=== PATIENT | female | born 1935 | race Caucasian/White ===

== ENCOUNTER 2017-08-27 00:37 | Inpatient (IN) | payer MEDICARE, MEDICAID ==
[2017-08-27] MEDS ORDERED: Albuterol-Ipratrop 3 mg / 0.5 (3 ml) UD INH STA ×2 (00:51)
[2017-08-27 01:17] LABS: ABG ALLEN TEST YES; ABG MECHANICAL RATE 14; ARTERIAL BLOOD GAS HCO3 28.3 mmol/L (21-28); ARTERIAL BLOOD GAS PH 7.59 (7.35-7.45); ARTERIAL BLOOD GAS PO2 193 mm/Hg (80-100)
--- NOTE | 2017-08-27 01:20 | ED PDOC ---
HPI: SOB/CHF/COPD Time Seen by Provider: 08/27/17 00:40 Chief Complaint (Nursing): Respiratory Distress Chief Complaint (Provider): Respiratory Distress History Per: Family (History was provided by the Daughter) Onset/Duration Of Symptoms: Days (x 3 days) Current Symptoms Are (Timing): Still Present Additional Complaint(s): 82 y/o female with past medical history of asthma who has a pacemaker is presented to the ED by EMS for respiratory distress and shortness of breath associated with cough x 2 days. According to the daughter, patient visited visual basic developer yesterday, 08/26/17 and after that she developed cough and fever. Patient was found with extreme SOB by EMS and was intubated on scene. On arrival to ED, patient was given positive pressure ventilation and chest rise was observed. Past Medical History Reviewed: Historical Data, Nursing Documentation, Vital Signs Vital Signs: Last Vital Signs Temp 97.7 F 08/27/17 03:40 Pulse 70 08/27/17 06:00 Resp 17 08/27/17 06:00 BP 141/65 08/27/17 06:00 Pulse Ox 100 08/27/17 07:04 - Medical History PMH: Asthma, Diabetes, HTN - Surgical History Surgical History: Cholecystectomy, Pacemaker - Family History Family History: States: Unknown Family Hx - Home Medications Home Medications: Ambulatory Orders Medication Instructions Recorded Acetaminophen with Codeine 1 tab PO Q4 PRN #10 tab 04/03/15 [Tylenol with Codeine No. 3 300 mg-30 mg] Donepezil HCl [Donepezil HCl] 5 mg PO HS 04/03/15 Fenofibrate Nanocrystallized 48 mg PO HS 04/03/15 [Fenofibrate] Furosemide [Furosemide] 40 mg PO DAILY 04/03/15 Ibuprofen [Motrin] 600 mg PO Q6 PRN #10 tab 04/03/15 Insulin Detemir [Levemir] 20 unit SC ACB 04/03/15 Insulin Detemir [Levemir] 36 units SC HS 04/03/15 Losartan Potassium [Cozaar] 100 mg PO DAILY 04/03/15 Montelukast [Singulair] 10 mg PO HS 04/03/15 Nateglinide [Starlix] 120 mg PO TID 04/03/15 Omeprazole [Prilosec] 20 mg PO BID 04/03/15 Paroxetine HCl [Paroxetine] 20 mg PO DAILY 04/03/15 Potassium Chloride [K-Dur 10] 10 meq PO DAILY 04/03/15 Pregabalin [Lyrica] 75 mg PO HS 04/03/15 Repaglinide [Prandin] 2 mg PO TID 04/03/15 Esomeprazole Magnesium [Nexium] 40 mg PO DAILY 08/27/17 Fenofibrate Nanocrystallized 48 mg PO DAILY 08/27/17 [Tricor] Ferrous Sulfate [Ferosul] 325 mg PO DAILY 08/27/17 Furosemide [Lasix] 40 mg PO DAILY 08/27/17 Glimepiride [amaRYL] 4 mg PO BID 08/27/17 Metoprolol Succinate [Toprol XL] 100 mg PO DAILY 08/27/17 [place]-3S/Dha/Epa/Fish Oil [Fish 2 cap PO DAILY 08/27/17 Oil [place]-3 Softgel] Pregabalin [Lyrica] 75 mg PO DAILY 08/27/17 Zolpidem [Ambien] 5 mg PO HS 08/27/17 cloNIDine [Catapres] 0.2 mg PO DAILY 08/27/17 hydrALAZINE [Apresoline] 50 mg PO DAILY 08/27/17 - Allergies Allergies/Adverse Reactions: Allergies Allergy/AdvReac Type Severity Reaction Status Date / Time No Known Allergies Allergy Verified 08/27/17 00:49 Review of Systems Review Of Systems: ROS cannot be obtained secondary to pt's inabilty to answer questions. (Due to critical condition, patient was unable to answer questions. Daughter provided some information) Constitutional: Positive for: Fever Respiratory: Positive for: Cough, Shortness of Breath, Other (respiratory distress) Physical Exam - Reviewed Nursing Documentation Reviewed: Yes Vital Signs Reviewed: Yes - Physical Exam Appears: Positive for: In Acute Distress Head Exam: Positive for: ATRAUMATIC, NORMAL INSPECTION, NORMOCEPHALIC Skin: Positive for: Normal Color, Warm, Dry Eye Exam: Positive for: EOMI, PERRL ENT: Positive for: Other (intubated) Cardiovascular/Chest: Positive for: Regular Rate, Rhythm. Negative for: Murmur Respiratory: Positive for: Wheezing (bilateral wheezing with positive pressure ventilation), Respiratory Distress (Paitent intubated on scene by EMS) Gastrointestinal/Abdominal: Positive for: Bowel Sounds, Soft, Distended Extremity: Negative for: Tenderness, Pedal Edema, Swelling Neurologic/Psych: Positive for: Other (intubated) - Laboratory Results Result Diagrams: 08/27/17 05:30 08/27/17 05:30 - ECG O2 Sat by Pulse Oximetry: 100 (RA) Pulse Ox Interpretation: Normal - Critical Care Total Time (In Min): 60 Medical Decision Making Medical Decision Making: Time: 00:42 Initial Impression: 82 y/o female with respiratory failure with past medical history asthma, cancer and hypertension Plan: --ABG shock panel --EKG --CMP --Lactic acid, Plasma --Troponin I --Urine Dipstick --CBC w/ differential --PTT --Prothrombin time --Chest portable --Albuterol 3ml INH --Albuterol 3ml INH --Methylprednisolone 125mg IVP --Blood culture --Heplock Insertion --Accucheck --[place] --Ventilator settings --Peak flow pre/post Tx --Peak flow pre/post Tx --Influenza A B --Urinalysis --Reevaluation Time: 02:00 Upon provider reevaluation patient is critical and is transferred to ICU for further treatment with Dr. Fierro and Dr. Jules. Clinical Impression: Respiratory Failure, CHF, Asthma exacerbation Scribe Attestation: Documented by Cachorro Bennett acting as a scribe for James García MD. Scribe Attestation: All medical record entries made by the Scribe were at my direction and personally dictated by me. I have reviewed the chart and agree that the record accurately reflects my personal performance of the history, physical exam, medical decision making, and the department course for this patient. I have also personally directed, reviewed, and agree with the discharge instructions and disposition. Disposition - Clinical Impression Clinical Impression: Respiratory failure, CHF (congestive heart failure), Moderate COPD (chronic obstructive pulmonary disease) - Patient ED Disposition Is Patient to be Admitted: Yes Discussed With : Mario Jules (Dr Fierro) - Disposition Disposition Time: 02:00 Condition: CRITICAL - Pt Status Changed To: Hospital Disposition Of: Inpatient - Admit Certification Admit to Inpatient:: After my assessment, the patient will require hospitalization for at least two midnights. This is because of the severity of symptoms shown, intensity of services needed, and/or the medical risk in this patient being treated as an outpatient.
[2017-08-27] MEDS ORDERED: Albuterol-Ipratrop 3 mg / 0.5 (3 ml) UD ONE (01:50)
[2017-08-27 01:57] LABS: BASO % 0.1 % (0.0-2.0); EOS # 0.1 K/uL (0.0-0.7); HEMATOCRIT 29.1 % (34.0-47.0); LYMPH # 0.6 K/uL (1.0-4.3); LYMPH % 10.1 % (20.0-40.0); MEAN CELL VOLUME 100.3 fl (81.0-99.0); MEAN CORPUSCULAR HEMOGLOBIN 34.1 pg (27.0-31.0); MEAN PLATELET VOLUME 9.3 fl (7.2-11.7); MONO # 0.1 K/uL (0.0-0.8); NEUT % 87.8 % (50.0-75.0); NRBC % 0.1 % (0.0-0.0); RED CELL DISTRIBUTION WIDTH 13.2 % (11.5-14.5); WHITE BLOOD COUNT 5.7 K/uL (4.8-10.8)
[2017-08-27 02:02] LABS: ALB/GLOB RATIO 1.1 (1.0-2.1); BILIRUBIN,TOTAL 0.3 mg/dl (0.2-1.3); CALCIUM 8.9 mg/dL (8.4-10.2); POTASSIUM 5.3 MMOL/L (3.6-5.0); TOTAL PROTEIN 7.4 G/DL (6.3-8.2)
[2017-08-27 02:13] LABS: PARTIAL THROMBOPLASTIN TIME 32.5 Seconds (25.6-37.1)
[2017-08-27] MEDS ORDERED: Insulin Regular 100 units/ml IV ONE (02:13)
[2017-08-27 02:14] LABS: TROPONIN I 0.033 ng/mL (0.00-0.120)
[2017-08-27] MEDS ORDERED: Insulin Lispro (humaLOG) 100 Units/ml Inj SC SCH (02:30)
--- NOTE | 2017-08-27 02:30 | CP.PCM.CON ---
History of Present Illness - History of Present Illness History of Present Illness: CC: SOB History via staff/chart as patient is intubated HPI: This is an 82 y/o female with MHx significant for asthma, ?systolic CHF, arrhythmia, DM2, and HTN who was brought in by EMS for SOB/respiratory failure. She was intubated in the field and was placed on the vent in the ER. Per her family, she had seen her emergency services dispatcher yesterday, and the visit was uneventful. However, she had developed a cough about 2 days ago, and it got much worse overnight; she may have had a fever as well, but not documented. There is no report of n/v/d. ROS: unable to obtain, patient intubated MHx: asthma, ?systolic CHF, arrhythmia, DM2, and HTN SHx: PPM, cholecystectomy Family Hx: unable to obtain, intubated Social Hx: Lives with family; no report of tobacco or EtOH Surrogate dec mkr: Ermelinda Koehler Review of Systems - Review of Systems Systems not reviewed;Unavailable: Intubated Past Patient History - CARDIAC Hx Hypertension: Yes Hx Pacemaker: Yes - PULMONARY Hx Asthma: Yes - ENDOCRINE/METABOLIC Hx Diabetes Mellitus Type 2: Yes - HEMATOLOGICAL/ONCOLOGICAL Hx Cancer: Yes (HX LEFT BREAST) - SURGICAL HISTORY Hx Cholecystectomy: Yes - ANESTHESIA Hx Anesthesia: Yes Meds Allergies/Adverse Reactions: Allergies Allergy/AdvReac Type Severity Reaction Status Date / Time No Known Allergies Allergy Verified 08/27/17 00:49 - Medications Medications: Current Medications Albuterol/Ipratropium (Duoneb 3 Mg/0.5 Mg (3 Ml) Ud) 3 ml INH RQ4 PRN PRN Reason: Shortness of Breath Furosemide (Lasix) 40 mg IVP BID [facility] Heparin Sodium (Porcine) (Heparin) 5,000 units SC Q8 [facility] PRN Reason: Protocol Methylprednisolone 60 mg/ (Sodium Chloride) 50 mls @ 100 mls/hr IV Q8H [facility] Insulin Human Lispro (Humalog) 0 units SC Q6H [facility] PRN Reason: Protocol Pantoprazole Sodium (Protonix Inj) 40 mg IVP DAILY [facility] Physical Exam - Constitutional Appears: No Acute Distress Additional comments: intubated - Head Exam Head Exam: ATRAUMATIC, NORMOCEPHALIC - ENT Exam ENT Exam: Mucous Membranes Moist - Respiratory Exam Respiratory Exam: Rales, Rhonchi Additional comments: on vent, coarse breath sounds on vent - Cardiovascular Exam Cardiovascular Exam: REGULAR RHYTHM, +S1, +S2 - GI/Abdominal Exam GI & Abdominal Exam: Normal Bowel Sounds, Soft - Extremities Exam Extremities exam: Positive for: pedal edema - Skin Skin Exam: Dry, Warm Results - Vital Signs Recent Vital Signs: Last Vital Signs Temp Pulse 92 H 08/27/17 01:03 Resp 25 H 08/27/17 01:03 BP 157/85 H 08/27/17 01:03 Pulse Ox 100 08/27/17 01:50 - Labs Result Diagrams: 08/27/17 00:45 08/27/17 00:45 Labs: Laboratory Results - last 24 hr 08/27/17 08/27/17 08/27/17 00:45 00:45 00:45 WBC 5.7 RBC 2.90 L Hgb 9.9 L Hct 29.1 L MCV 100.3 H D MCH 34.1 H MCHC 34.0 RDW 13.2 Plt Count 120 L D MPV 9.3 Neut % (Auto) 87.8 H Lymph % (Auto) 10.1 L [place] % (Auto) 1.0 Eos % (Auto) 1.0 Baso % (Auto) 0.1 Neut # 5.0 Lymph # 0.6 L [place] # 0.1 Eos # 0.1 Baso # 0.0 PT 11.3 INR 1.0 APTT 32.5 pCO2 pO2 HCO3 ABG pH ABG Total CO2 ABG O2 Saturation ABG Base Excess Edilson Test ABG Potassium A-a O2 Difference Glucose Lactate Mechanical Rate FiO2 Tidal Volume Sodium 135 Potassium 5.3 H Chloride 102 Carbon Dioxide 25 Anion Gap 13 BUN 48 H Creatinine 1.9 H Est GFR ( Amer) 30 Est GFR (Non-Af Amer) 25 Random Glucose 338 H Lactic Acid Calcium 8.9 Total Bilirubin 0.3 AST 33 ALT 23 Alkaline Phosphatase 49 Troponin I 0.0330 NT-Pro-B Natriuret Pep 6430 H Total Protein 7.4 Albumin 3.8 Globulin 3.6 Albumin/Globulin Ratio 1.1 Arterial Blood Potassium Influenza Typ A,B (EIA) 08/27/17 08/27/17 08/27/17 00:45 00:45 01:03 WBC RBC Hgb Hct MCV MCH MCHC RDW Plt Count MPV Neut % (Auto) Lymph % (Auto) [place] % (Auto) Eos % (Auto) Baso % (Auto) Neut # Lymph # [place] # Eos # Baso # PT INR APTT pCO2 26 L pO2 193 H HCO3 28.3 H ABG pH 7.59 H ABG Total CO2 25.7 ABG O2 Saturation 99.9 H ABG Base Excess 4.3 H Edilson Test Yes ABG Potassium 5.7 H A-a O2 Difference 488.0 Glucose 350 H Lactate 1.2 Mechanical Rate 14 FiO2 100.0 Tidal Volume 500 Sodium 132.0 Potassium Chloride 108.0 H Carbon Dioxide Anion Gap BUN Creatinine Est GFR ( Amer) Est GFR (Non-Af Amer) Random Glucose Lactic Acid 1.4 Calcium Total Bilirubin AST ALT Alkaline Phosphatase Troponin I NT-Pro-B Natriuret Pep Total Protein Albumin Globulin Albumin/Globulin Ratio Arterial Blood Potassium 5.7 H Influenza Typ A,B (EIA) Negative for flu a/b - EKG Data EKG comments: Pending - Imaging and Cardiology Chest x-ray Status: Image reviewed by me (poor quality, likely vol overload, ET tube in place, PM on L) Assessment & Plan (1) Respiratory failure Assessment and Plan: 82 y/o female with respiratory failure likely 2/2 asthma and AoC systolic CHF. 1) Asthma/respiratory failure; no obvious PNA -Continue duonebs -Continue IV Solumedrol 60 mg q8h -Continue vent support 2) CHF/respiratory failure -Lasix 40 mg IV q12h -Continue vent support 3) ARF/elevated K -- likely due to vol o/l and impaired forward flow -UA -Diurese; should help with K as well -Hold MIL/ARBs for now; dose medications renally -Repeat BMP in AM 4) DM2 -NPO for now, q6h ac and SSI for now; resume LA insulin in AM if blood sugar high 5) HTN -- consider resuming BP medications in AM if BP is stable 6) DVT PPx -- SQ heparin 7) GI PPx -- IV Protonix Critical Care time spent: 40 min Status: Acute (2) Systolic CHF, acute on chronic Status: Acute (3) Asthma attack Status: Acute (4) DM2 (diabetes mellitus, type 2) Status: Acute (5) HTN (hypertension) Status: Acute (6) DVT prophylaxis Status: Acute
[2017-08-27] MEDS ORDERED: Insulin Regular 100 units/ml ONE (02:52)
--- NOTE | 2017-08-27 03:54 | CT ---
EXAM: CT Head Without Intravenous Contrast CLINICAL HISTORY: 82 years old, female; Signs and symptoms; Altered mental status/memory loss; Additional info: AMS TECHNIQUE: Axial computed tomography images of the head/brain without intravenous contrast. All CT scans at this facility use one or more dose reduction techniques, viz.: automated exposure control; ma/kV adjustment per patient size (including targeted exams where dose is matched to indication; i.e. head); or iterative reconstruction technique. Coronal and sagittal reformatted images were created and reviewed. COMPARISON: No relevant prior studies available. FINDINGS: Brain: Mild atrophy. No intracranial hemorrhage. No mass. Few scattered foci of decreased attenuation within periventricular/subcortical white matter. No definite edema. Ventricles: No hydrocephalus. Bones/joints: No acute fracture. Soft tissues: Unremarkable. Vasculature: Atherosclerotic disease of intracranial arteries. Sinuses: Scattered mild to moderate thickening of ethmoid sinuses. Scattered minimal to mild mucosal thickening of remaining sinuses. Mastoid air cells: Minimal fluid within LEFT mastoid. Orbits: Unremarkable as visualized. Tubes, lines and devices: Endotracheal tube. IMPRESSION: 1. Nonspecific white matter changes. Acute infarction may be CT occult within first 24 hours. If a focal deficit persists, consider followup CT or MRI for further evaluation. 2. Incidental/non-acute findings are described above.
[2017-08-27] MEDS: methylPREDNISolone 60 MG in Sodium Chloride 0.9% 50 ML IV SCH ×2 (04:20→11:02)
[2017-08-27 04:56] LABS: RBC URINE 1 /hpf (0-3); URINE BACTERIA RARE (<OCC); URINE BILIRUBIN NEGATIVE (NEGATIVE); URINE BLOOD NEGATIVE (NEGATIVE); URINE COLOR YELLOW (YELLOW); URINE GLUCOSE (UA) 50 mg/dL (Normal); URINE KETONE NEGATIVE (NEGATIVE); URINE LEUKOCYTE ESTERASE NEG Leu/uL (Negative); URINE PROTEIN 30 mg/dL (NEGATIVE); URINE UROBILINOGEN 0.2-1.0 mg/dL (0.2-1.0); WBC URINE 2 /hpf (0-5)
[2017-08-27 06:28] LABS: MEAN CELL VOLUME 99.7 fl (81.0-99.0); MEAN CORPUSCULAR HGB CONC 34.1 g/dL (33.0-37.0); MEAN PLATELET VOLUME 8.9 fl (7.2-11.7); RED CELL DISTRIBUTION WIDTH 13.1 % (11.5-14.5); WHITE BLOOD COUNT 5.5 K/uL (4.8-10.8)
[2017-08-27 06:48] LABS: CALCIUM 8.7 mg/dL (8.4-10.2); POTASSIUM 5.5 MMOL/L (3.6-5.0)
[2017-08-27 06:57] VITALS: BMI 35.6
[2017-08-27 09:38] LABS: THYROID STIMULATING HORMONE 1.19 mIU/ML (0.46-4.68)
--- NOTE | 2017-08-27 10:58 | CP.PCM.CON ---
History of Present Illness - History of Present Illness History of Present Illness: RENAL CONSULT NOTE 82 y/o female with asthma, CHF, arrhythmia, DM2, and HTN who was brought in by EMS for SOB/respiratory failure, currently intubated and being treated for chf. I have been consulted for elaine. past medical hx as above social, family hx unable to obtain PE: lying in bed intubated heent normal opens eyes to name [id number] present bilateral air entry equal abd soft edema _ opens eyes to name A&P; ELAINE/hyperkalemia/chf/resp failure/htn non oliguric monitor urine outpt continue lasix hyperkalemia: medical management please call if any qs [phone] Past Patient History - Past Medical History & Family History Past Medical History?: Yes - Past Social History Smoking Status: Never Smoked - CARDIAC Hx Hypertension: Yes Hx Pacemaker: Yes - PULMONARY Hx Asthma: Yes - NEUROLOGICAL Hx Neurological Disorder: Yes - HEENT Hx HEENT Problems: No - RENAL Hx Chronic Kidney Disease: No - ENDOCRINE/METABOLIC Hx Endocrine Disorders: Yes - HEMATOLOGICAL/ONCOLOGICAL Hx Blood Disorders: Yes - INTEGUMENTARY Hx Dermatological Problems: No - MUSCULOSKELETAL/RHEUMATOLOGICAL Hx Musculoskeletal Disorders: No - PSYCHIATRIC Hx Psychophysiologic Disorder: Yes - SURGICAL HISTORY Hx Cholecystectomy: Yes - ANESTHESIA Hx Anesthesia: Yes Meds Allergies/Adverse Reactions: Allergies Allergy/AdvReac Type Severity Reaction Status Date / Time No Known Allergies Allergy Verified 08/27/17 00:49 - Medications Medications: Current Medications Albuterol/Ipratropium (Duoneb 3 Mg/0.5 Mg (3 Ml) Ud) 3 ml INH RQ4 PRN PRN Reason: Shortness of Breath Furosemide (Lasix) 40 mg IVP BID [facility] Last Admin: 08/27/17 08:38 Dose: 40 mg Heparin Sodium (Porcine) (Heparin) 5,000 units SC Q8 [facility] PRN Reason: Protocol Last Admin: 08/27/17 08:38 Dose: 5,000 units Methylprednisolone 60 mg/ (Sodium Chloride) 50 mls @ 100 mls/hr IV Q8H [facility] Last Admin: 08/27/17 04:20 Dose: 100 mls/hr Insulin Human Lispro (Humalog) 0 units SC Q6 [facility] PRN Reason: Protocol Pantoprazole Sodium (Protonix Inj) 40 mg IVP DAILY [facility] Last Admin: 08/27/17 08:38 Dose: 40 mg Results - Vital Signs Recent Vital Signs: Last Vital Signs Temp 97.4 F L 08/27/17 08:00 Pulse 70 08/27/17 10:00 Resp 16 08/27/17 10:00 BP 175/68 H 08/27/17 10:00 Pulse Ox 100 08/27/17 10:00 - Labs Result Diagrams: 08/27/17 05:30 08/27/17 05:30 Labs: Laboratory Results - last 24 hr 08/27/17 08/27/17 08/27/17 00:45 00:45 00:45 WBC 5.7 RBC 2.90 L Hgb 9.9 L Hct 29.1 L MCV 100.3 H D MCH 34.1 H MCHC 34.0 RDW 13.2 Plt Count 120 L D MPV 9.3 Neut % (Auto) 87.8 H Lymph % (Auto) 10.1 L [place] % (Auto) 1.0 Eos % (Auto) 1.0 Baso % (Auto) 0.1 Neut # 5.0 Lymph # 0.6 L [place] # 0.1 Eos # 0.1 Baso # 0.0 PT 11.3 INR 1.0 APTT 32.5 pCO2 pO2 HCO3 ABG pH ABG Total CO2 ABG O2 Saturation ABG Base Excess Edilson Test ABG Potassium A-a O2 Difference Glucose Lactate Mechanical Rate FiO2 Tidal Volume Sodium 135 Potassium 5.3 H Chloride 102 Carbon Dioxide 25 Anion Gap 13 BUN 48 H Creatinine 1.9 H Est GFR ( Amer) 30 Est GFR (Non-Af Amer) 25 POC Glucose (mg/dL) Random Glucose 338 H Lactic Acid Calcium 8.9 Total Bilirubin 0.3 AST 33 ALT 23 Alkaline Phosphatase 49 Troponin I 0.0330 NT-Pro-B Natriuret Pep 6430 H Total Protein 7.4 Albumin 3.8 Globulin 3.6 Albumin/Globulin Ratio 1.1 Triglycerides Cholesterol LDL Cholesterol Direct HDL Cholesterol Vitamin B12 TSH 3rd Generation Arterial Blood Potassium Urine Color Urine Clarity Urine pH Ur Specific [place] Urine Protein Urine Glucose (UA) Urine Ketones Urine Blood Urine Nitrate Urine Bilirubin Urine Urobilinogen Ur Leukocyte Esterase Urine RBC (Auto) Urine Microscopic WBC Ur Squamous Epith Cells Urine Bacteria Hyaline Casts Influenza Typ A,B (EIA) 08/27/17 08/27/17 08/27/17 00:45 00:45 01:03 WBC RBC Hgb Hct MCV MCH MCHC RDW Plt Count MPV Neut % (Auto) Lymph % (Auto) [place] % (Auto) Eos % (Auto) Baso % (Auto) Neut # Lymph # [place] # Eos # Baso # PT INR APTT pCO2 26 L pO2 193 H HCO3 28.3 H ABG pH 7.59 H ABG Total CO2 25.7 ABG O2 Saturation 99.9 H ABG Base Excess 4.3 H Edilson Test Yes ABG Potassium 5.7 H A-a O2 Difference 488.0 Glucose 350 H Lactate 1.2 Mechanical Rate 14 FiO2 100.0 Tidal Volume 500 Sodium 132.0 Potassium Chloride 108.0 H Carbon Dioxide Anion Gap BUN Creatinine Est GFR ( Amer) Est GFR (Non-Af Amer) POC Glucose (mg/dL) Random Glucose Lactic Acid 1.4 Calcium Total Bilirubin AST ALT Alkaline Phosphatase Troponin I NT-Pro-B Natriuret Pep Total Protein Albumin Globulin Albumin/Globulin Ratio Triglycerides Cholesterol LDL Cholesterol Direct HDL Cholesterol Vitamin B12 TSH 3rd Generation Arterial Blood Potassium 5.7 H Urine Color Urine Clarity Urine pH Ur Specific [place] Urine Protein Urine Glucose (UA) Urine Ketones Urine Blood Urine Nitrate Urine Bilirubin Urine Urobilinogen Ur Leukocyte Esterase Urine RBC (Auto) Urine Microscopic WBC Ur Squamous Epith Cells Urine Bacteria Hyaline Casts Influenza Typ A,B (EIA) Negative for flu a/b 08/27/17 08/27/17 08/27/17 04:10 04:47 05:30 WBC 5.5 RBC 2.71 L Hgb 9.2 L Hct 27.0 L MCV 99.7 H MCH 34.0 H MCHC 34.1 RDW 13.1 Plt Count 103 L MPV 8.9 Neut % (Auto) Lymph % (Auto) [place] % (Auto) Eos % (Auto) Baso % (Auto) Neut # Lymph # [place] # Eos # Baso # PT INR APTT pCO2 pO2 HCO3 ABG pH ABG Total CO2 ABG O2 Saturation ABG Base Excess Edilson Test ABG Potassium A-a O2 Difference Glucose Lactate Mechanical Rate FiO2 Tidal Volume Sodium Potassium Chloride Carbon Dioxide Anion Gap BUN Creatinine Est GFR ( Amer) Est GFR (Non-Af Amer) POC Glucose (mg/dL) 291 H Random Glucose Lactic Acid Calcium Total Bilirubin AST ALT Alkaline Phosphatase Troponin I NT-Pro-B Natriuret Pep Total Protein Albumin Globulin Albumin/Globulin Ratio Triglycerides Cholesterol LDL Cholesterol Direct HDL Cholesterol Vitamin B12 TSH 3rd Generation Arterial Blood Potassium Urine Color Yellow Urine Clarity Slighty-cloudy Urine pH 5.0 Ur Specific [place] 1.017 Urine Protein 30 Urine Glucose (UA) 50 Urine Ketones Negative Urine Blood Negative Urine Nitrate Negative Urine Bilirubin Negative Urine Urobilinogen 0.2-1.0 Ur Leukocyte Esterase Neg Urine RBC (Auto) 1 Urine Microscopic WBC 2 Ur Squamous Epith Cells < 1 Urine Bacteria Rare Hyaline Casts 0-2 Influenza Typ A,B (EIA) 08/27/17 08/27/17 08/27/17 05:30 08:20 10:45 WBC RBC Hgb Hct MCV MCH MCHC RDW Plt Count MPV Neut % (Auto) Lymph % (Auto) [place] % (Auto) Eos % (Auto) Baso % (Auto) Neut # Lymph # [place] # Eos # Baso # PT INR APTT pCO2 pO2 HCO3 ABG pH ABG Total CO2 ABG O2 Saturation ABG Base Excess Edilson Test ABG Potassium A-a O2 Difference Glucose Lactate Mechanical Rate FiO2 Tidal Volume Sodium 140 Potassium 5.5 H Chloride 103 Carbon Dioxide 27 Anion Gap 16 BUN 51 H Creatinine 2.1 H Est GFR ( Amer) 27 Est GFR (Non-Af Amer) 22 POC Glucose (mg/dL) 348 H Random Glucose 330 H Lactic Acid Calcium 8.7 Total Bilirubin AST ALT Alkaline Phosphatase Troponin I NT-Pro-B Natriuret Pep Total Protein Albumin Globulin Albumin/Globulin Ratio Triglycerides 176 H Cholesterol 137 LDL Cholesterol Direct 47 HDL Cholesterol 26 L Vitamin B12 468 TSH 3rd Generation 1.19 Arterial Blood Potassium Urine Color Urine Clarity Urine pH Ur Specific [place] Urine Protein Urine Glucose (UA) Urine Ketones Urine Blood Urine Nitrate Urine Bilirubin Urine Urobilinogen Ur Leukocyte Esterase Urine RBC (Auto) Urine Microscopic WBC Ur Squamous Epith Cells Urine Bacteria Hyaline Casts Influenza Typ A,B (EIA)
[2017-08-27] MEDS: Insulin Lispro (humaLOG) 100 Units/ml Inj SC SCH ×3 (11:01→22:14)
--- NOTE | 2017-08-27 13:04 | RAD ---
HISTORY: resp failure COMPARISON: Comparison chest 11/04/2009 FINDINGS: In situ ETT, tip of which lies at approximately the thoracic inlet - clavicular head region. This could be advanced slightly. The LUNGS: Diffuse bilateral infiltrates nonspecific. Rule out pulmonary edema/ CHF versus pneumonia. PLEURA: No significant pleural effusion identified, no pneumothorax apparent. CARDIOVASCULAR: Cardiomegaly. Interval placement bipolar pacemaker. OSSEOUS STRUCTURES: No significant abnormalities. VISUALIZED UPPER ABDOMEN: Normal. OTHER FINDINGS: None. IMPRESSION: ETT lies at the level of thoracic inlet and could be advanced. Diffuse bilateral infiltrates nonspecific. Rule out pulmonary edema/ CHF versus pneumonia. . Note that the findings were discussed with the ICU physician Dr. Barrett at approximately 1 p.m. with written down and read back verification.
[2017-08-27] MEDS: Azithromycin 500 MG in Sodium Chloride 0.9% 250 ML IVPB SCH (14:07)
[2017-08-27] MEDS: cefTRIAXone IV 1 gm in Dextros 50 ML IVPB SCH (14:08)
[2017-08-27] MEDS: Albuterol-Ipratrop 3 mg / 0.5 (3 ml) UD INH SCH ×2 (15:46→19:22)
--- NOTE | 2017-08-27 18:26 | CARD ---
APPROVED REPORT EKG Measurement Heart [id number] P7 [id number] <Conclusion> AV dual-paced rhythm with frequent premature ventricular complexes Abnormal ECG
--- NOTE | 2017-08-27 18:40 | CP.PCM.CON ---
History of Present Illness - History of Present Illness History of Present Illness: Consultation for evaluation of CHF HPI: 82 year old with hx of hepatic ca with metastatic breast ca on chemotherapy at [facility] , followed by signal manager ( Lulu ) was at his office yesterday for cardiac evaluation , on XRT and chemo x 5 years admitted with c/o acute onset SOB and cough went into respiratory failure requiiring intubation in the field. Walks with a cane and a walker at home with very limted activity/ . Already on chemo for liver ca at [facility] by . She saw for pulmonary evaluation COPD/sleep apnea. She was sent for sleep study which showed she has sleep apnea and was waiting for CPAP machine. Past Patient History - Past Medical History & Family History Past Medical History?: Yes - Past Social History Smoking Status: Never Smoked - CARDIAC Hx Cardiac Disorders: Yes Hx Cardia Arrhythmia: Yes Hx Congestive Heart Failure: Yes Hx Hypertension: Yes Hx Pacemaker: Yes - PULMONARY Hx Asthma: Yes - NEUROLOGICAL Hx Neurological Disorder: Yes - HEENT Hx HEENT Problems: No - RENAL Hx Chronic Kidney Disease: No - ENDOCRINE/METABOLIC Hx Endocrine Disorders: Yes - HEMATOLOGICAL/ONCOLOGICAL Hx Blood Disorders: Yes - INTEGUMENTARY Hx Dermatological Problems: No - MUSCULOSKELETAL/RHEUMATOLOGICAL Hx Musculoskeletal Disorders: No - PSYCHIATRIC Hx Psychophysiologic Disorder: Yes - SURGICAL HISTORY Hx Cholecystectomy: Yes - ANESTHESIA Hx Anesthesia: Yes Meds Allergies/Adverse Reactions: Allergies Allergy/AdvReac Type Severity Reaction Status Date / Time No Known Allergies Allergy Verified 08/27/17 00:49 - Medications Medications: Current Medications Albuterol/Ipratropium (Duoneb 3 Mg/0.5 Mg (3 Ml) Ud) 3 ml INH RQ4 PRN PRN Reason: Shortness of Breath Albuterol/Ipratropium (Duoneb 3 Mg/0.5 Mg (3 Ml) Ud) 3 ml INH RQID [facility] Last Admin: 08/27/17 15:46 Dose: 3 ml Furosemide (Lasix) 40 mg IVP BID [facility] Last Admin: 08/27/17 16:34 Dose: 40 mg Heparin Sodium (Porcine) (Heparin) 5,000 units SC Q8 [facility] PRN Reason: Protocol Last Admin: 08/27/17 16:32 Dose: 5,000 units Ceftriaxone Sodium (Rocephin Iv 1 Gm Duplex) 50 mls @ 50 mls/hr IVPB DAILY [facility] PRN Reason: Protocol Last Admin: 08/27/17 14:08 Dose: 50 mls/hr Azithromycin 500 mg/ Sodium (Chloride) 250 mls @ 250 mls/hr IVPB DAILY [facility] PRN Reason: Protocol Last Admin: 08/27/17 14:07 Dose: 250 mls/hr Insulin Human Lispro (Humalog) 0 units SC Q6 [facility] PRN Reason: Protocol Last Admin: 08/27/17 16:33 Dose: 8 units Methylprednisolone (Solu-Medrol) 60 mg IVP Q8H [facility] Last Admin: 08/27/17 17:38 Dose: 60 mg Pantoprazole Sodium (Protonix Inj) 40 mg IVP DAILY [facility] Last Admin: 08/27/17 08:38 Dose: 40 mg Physical Exam - Constitutional Appears: Toxic - Head Exam Head Exam: ATRAUMATIC - Eye Exam Eye Exam: Normal appearance, PERRL - ENT Exam ENT Exam: Mucous Membranes Moist - Neck Exam Neck exam: Positive for: Normal Inspection - Respiratory Exam Respiratory Exam: Decreased Breath Sounds, Prolonged Expiratory Phase, Rales - Cardiovascular Exam Cardiovascular Exam: REGULAR RHYTHM, +S1, +S2, Systolic Murmur - GI/Abdominal Exam GI & Abdominal Exam: Soft - Extremities Exam Extremities exam: Positive for: normal inspection, pedal edema - Neurological Exam Neurological exam: Altered Results - Vital Signs Recent Vital Signs: Last Vital Signs Temp 98.1 F 08/27/17 16:00 Pulse 70 08/27/17 18:00 Resp 13 08/27/17 18:00 BP 156/78 H 08/27/17 18:00 Pulse Ox 100 08/27/17 18:00 - Labs Result Diagrams: 08/27/17 05:30 08/27/17 05:30 Labs: Laboratory Results - last 24 hr 08/27/17 08/27/17 08/27/17 00:45 00:45 00:45 WBC 5.7 RBC 2.90 L Hgb 9.9 L Hct 29.1 L MCV 100.3 H D MCH 34.1 H MCHC 34.0 RDW 13.2 Plt Count 120 L D MPV 9.3 Neut % (Auto) 87.8 H Lymph % (Auto) 10.1 L Blanco % (Auto) 1.0 Eos % (Auto) 1.0 Baso % (Auto) 0.1 Neut # 5.0 Lymph # 0.6 L Blanco # 0.1 Eos # 0.1 Baso # 0.0 PT 11.3 INR 1.0 APTT 32.5 pCO2 pO2 HCO3 ABG pH ABG Total CO2 ABG O2 Saturation ABG Base Excess Edilson Test ABG Potassium A-a O2 Difference Glucose Lactate Mechanical Rate FiO2 Tidal Volume Sodium 135 Potassium 5.3 H Chloride 102 Carbon Dioxide 25 Anion Gap 13 BUN 48 H Creatinine 1.9 H Est GFR ( Amer) 30 Est GFR (Non-Af Amer) 25 POC Glucose (mg/dL) Random Glucose 338 H Lactic Acid Calcium 8.9 Total Bilirubin 0.3 AST 33 ALT 23 Alkaline Phosphatase 49 Troponin I 0.0330 NT-Pro-B Natriuret Pep 6430 H Total Protein 7.4 Albumin 3.8 Globulin 3.6 Albumin/Globulin Ratio 1.1 Triglycerides Cholesterol LDL Cholesterol Direct HDL Cholesterol Vitamin B12 TSH 3rd Generation Arterial Blood Potassium Urine Color Urine Clarity Urine pH Ur Specific Red[place] Urine Protein Urine Glucose (UA) Urine Ketones Urine Blood Urine Nitrate Urine Bilirubin Urine Urobilinogen Ur Leukocyte Esterase Urine RBC (Auto) Urine Microscopic WBC Ur Squamous Epith Cells Urine Bacteria Hyaline Casts Influenza Typ A,B (EIA) 08/27/17 08/27/17 08/27/17 00:45 00:45 01:03 WBC RBC Hgb Hct MCV MCH MCHC RDW Plt Count MPV Neut % (Auto) Lymph % (Auto) Blanco % (Auto) Eos % (Auto) Baso % (Auto) Neut # Lymph # Blanco # Eos # Baso # PT INR APTT pCO2 26 L pO2 193 H HCO3 28.3 H ABG pH 7.59 H ABG Total CO2 25.7 ABG O2 Saturation 99.9 H ABG Base Excess 4.3 H Edilson Test Yes ABG Potassium 5.7 H A-a O2 Difference 488.0 Glucose 350 H Lactate 1.2 Mechanical Rate 14 FiO2 100.0 Tidal Volume 500 Sodium 132.0 Potassium Chloride 108.0 H Carbon Dioxide Anion Gap BUN Creatinine Est GFR ( Amer) Est GFR (Non-Af Amer) POC Glucose (mg/dL) Random Glucose Lactic Acid 1.4 Calcium Total Bilirubin AST ALT Alkaline Phosphatase Troponin I NT-Pro-B Natriuret Pep Total Protein Albumin Globulin Albumin/Globulin Ratio Triglycerides Cholesterol LDL Cholesterol Direct HDL Cholesterol Vitamin B12 TSH 3rd Generation Arterial Blood Potassium 5.7 H Urine Color Urine Clarity Urine pH Ur Specific [place] Urine Protein Urine Glucose (UA) Urine Ketones Urine Blood Urine Nitrate Urine Bilirubin Urine Urobilinogen Ur Leukocyte Esterase Urine RBC (Auto) Urine Microscopic WBC Ur Squamous Epith Cells Urine Bacteria Hyaline Casts Influenza Typ A,B (EIA) Negative for flu a/b 08/27/17 08/27/17 08/27/17 04:10 04:47 05:30 WBC 5.5 RBC 2.71 L Hgb 9.2 L Hct 27.0 L MCV 99.7 H MCH 34.0 H MCHC 34.1 RDW 13.1 Plt Count 103 L MPV 8.9 Neut % (Auto) Lymph % (Auto) Blanco % (Auto) Eos % (Auto) Baso % (Auto) Neut # Lymph # Blanco # Eos # Baso # PT INR APTT pCO2 pO2 HCO3 ABG pH ABG Total CO2 ABG O2 Saturation ABG Base Excess Edilson Test ABG Potassium A-a O2 Difference Glucose Lactate Mechanical Rate FiO2 Tidal Volume Sodium Potassium Chloride Carbon Dioxide Anion Gap BUN Creatinine Est GFR ( Amer) Est GFR (Non-Af Amer) POC Glucose (mg/dL) 291 H Random Glucose Lactic Acid Calcium Total Bilirubin AST ALT Alkaline Phosphatase Troponin I NT-Pro-B Natriuret Pep Total Protein Albumin Globulin Albumin/Globulin Ratio Triglycerides Cholesterol LDL Cholesterol Direct HDL Cholesterol Vitamin B12 TSH 3rd Generation Arterial Blood Potassium Urine Color Yellow Urine Clarity Slighty-cloudy Urine pH 5.0 Ur Specific [place] 1.017 Urine Protein 30 Urine Glucose (UA) 50 Urine Ketones Negative Urine Blood Negative Urine Nitrate Negative Urine Bilirubin Negative Urine Urobilinogen 0.2-1.0 Ur Leukocyte Esterase Neg Urine RBC (Auto) 1 Urine Microscopic WBC 2 Ur Squamous Epith Cells < 1 Urine Bacteria Rare Hyaline Casts 0-2 Influenza Typ A,B (EIA) 08/27/17 08/27/17 08/27/17 05:30 08:20 10:45 WBC RBC Hgb Hct MCV MCH MCHC RDW Plt Count MPV Neut % (Auto) Lymph % (Auto) Blanco % (Auto) Eos % (Auto) Baso % (Auto) Neut # Lymph # Blanco # Eos # Baso # PT INR APTT pCO2 pO2 HCO3 ABG pH ABG Total CO2 ABG O2 Saturation ABG Base Excess Edilson Test ABG Potassium A-a O2 Difference Glucose Lactate Mechanical Rate FiO2 Tidal Volume Sodium 140 Potassium 5.5 H Chloride 103 Carbon Dioxide 27 Anion Gap 16 BUN 51 H Creatinine 2.1 H Est GFR ( Amer) 27 Est GFR (Non-Af Amer) 22 POC Glucose (mg/dL) 348 H Random Glucose 330 H Lactic Acid Calcium 8.7 Total Bilirubin AST ALT Alkaline Phosphatase Troponin I NT-Pro-B Natriuret Pep Total Protein Albumin Globulin Albumin/Globulin Ratio Triglycerides 176 H Cholesterol 137 LDL Cholesterol Direct 47 HDL Cholesterol 26 L Vitamin B12 468 TSH 3rd Generation 1.19 Arterial Blood Potassium Urine Color Urine Clarity Urine pH Ur Specific [place] Urine Protein Urine Glucose (UA) Urine Ketones Urine Blood Urine Nitrate Urine Bilirubin Urine Urobilinogen Ur Leukocyte Esterase Urine RBC (Auto) Urine Microscopic WBC Ur Squamous Epith Cells Urine Bacteria Hyaline Casts Influenza Typ A,B (EIA) 08/27/17 16:32 WBC RBC Hgb Hct MCV MCH MCHC RDW Plt Count MPV Neut % (Auto) Lymph % (Auto) Blanco % (Auto) Eos % (Auto) Baso % (Auto) Neut # Lymph # Blanco # Eos # Baso # PT INR APTT pCO2 pO2 HCO3 ABG pH ABG Total CO2 ABG O2 Saturation ABG Base Excess Edilson Test ABG Potassium A-a O2 Difference Glucose Lactate Mechanical Rate FiO2 Tidal Volume Sodium Potassium Chloride Carbon Dioxide Anion Gap BUN Creatinine Est GFR ( Amer) Est GFR (Non-Af Amer) POC Glucose (mg/dL) 395 H Random Glucose Lactic Acid Calcium Total Bilirubin AST ALT Alkaline Phosphatase Troponin I NT-Pro-B Natriuret Pep Total Protein Albumin Globulin Albumin/Globulin Ratio Triglycerides Cholesterol LDL Cholesterol Direct HDL Cholesterol Vitamin B12 TSH 3rd Generation Arterial Blood Potassium Urine Color Urine Clarity Urine pH Ur Specific [place] Urine Protein Urine Glucose (UA) Urine Ketones Urine Blood Urine Nitrate Urine Bilirubin Urine Urobilinogen Ur Leukocyte Esterase Urine RBC (Auto) Urine Microscopic WBC Ur Squamous Epith Cells Urine Bacteria Hyaline Casts Influenza Typ A,B (EIA) Assessment & Plan (1) Asthma attack Status: Acute (2) CHF (congestive heart failure) Status: Acute (3) HTN (hypertension) Status: Acute (4) Moderate COPD (chronic obstructive pulmonary disease) Status: Acute (5) Respiratory failure Status: Acute (6) Systolic CHF, acute on chronic Status: Acute
--- NOTE | 2017-08-28 03:16 | PN ---
DATE: LOCATION: The patient in ICU, bed #425. TIME SPENT: 35 minutes. SUBJECTIVE: The patient is seen and evaluated at the bedside. Events since ER discussed with overnight hospitalist. Past medical, surgical, and social history reviewed and noted. An 82-year-old female, reportedly a nonsmoker with history significant for asthma, diabetes, hypertension, systolic heart failure, arrhythmia. Admitted through emergency room. Intubated in the field by EMS for sudden progressive worsening shortness of breath. The patient was seen by Cardiology prior to this admission and reportedly uneventful. Also noted to have low-grade fever reported by the family for the last couple of days. Surgical history includes cholecystectomy and pacemaker insertion. The patient remains intubated, mechanically ventilated on AC/PRBC rate of 14, tidal volume 500, FiO2 60%, saturating 100%. Observed respiratory rate of 14, exhale tidal volume of 460, peak airway pressure 27, and tidal CO2 of 36. PHYSICAL EXAMINATION: HEAD, EYES, EARS, NOSE, AND THROAT: Pupils reactive. Conjunctivae pale. Sclerae white. HEART: Rhythm regular. S1, S2 normal intensity. No S3, S4 gallop. ABDOMEN: Bowel sounds present. Soft. EXTREMITIES: Positive for 1 to 2+ plus pitting pedal edema. Dorsalis pedis palpable, reduced in intensity. SKIN: Without rash. Warm to touch. NEUROLOGIC: Sedated on ventilator. CURRENT MEDICATIONS: Albuterol/Atrovent inhalation 3 mL q.4. p.r.n., Lasix 40 mg IV b.i.d., heparin 5000 units subcu q.8., Accu-Chek with regular insulin coverage, Solu-Medrol 60 mg IV q.8., Protonix 40 mg IV daily. LABORATORY DATA: WBC 5.5, hemoglobin 9.2, hematocrit 27, platelet count 103. PT 11, INR 1, PTT 32.5. ABG; pH 7.59, pCO2 26, pO2 193, bicarbonate 28.3. SMA-7; sodium 140, potassium 5.5, chloride 103, CO2 27, blood urea nitrogen 51, creatinine 2.1, random glucose 348, triglycerides 176, cholesterol 137, LDL of 47, HDL 26, vitamin B12 468. TSH 1.19. Urinalysis negative. Serology influenza A and B negative. Microbiology report pending. Head CT, nonspecific white matter changes, minimal air fluid level at the sinuses. Chest x-ray, endotracheal tube in place. Elevated right hemidiaphragm. Left hemidiaphragm not visualized due to overlapping cardiac shadow. No pneumothorax, official report pending. IMPRESSION: 1. Neuro: Intubated on mechanical ventilation, sedated. CT head negative for acute pathology. 2. Pulmonary: Hypercapnic hypoxic respiratory failure. Continue ventilatory support, reduce FiO2 as tolerated to maintain pO2 over 70%. Continue DuoNeb 3 mL via nebulizer q. 4 hours. Solu-Medrol 60 mg IV q. 8. 3. Cardiac: Suspected history of systolic heart failure, suspected exacerbation on Lasix 40 mg IV b.i.d. We will obtain a Cardiology evaluation. Followup troponin. 4. Endocrine: History of for diabetes mellitus type 2, on Accu-Chek with regular insulin coverage. We will add basal insulin once the patient starts on feeding. 5. Gastrointestinal: No acute issues. Continue gastrointestinal prophylaxis. 6. History of hypertension: Resume medications once the blood pressure is improved. Keep the head of bed 30 degree up. Oral care. Deep venous thrombosis and gastrointestinal prophylaxis. Not a candidate for extubation now. Sterling Barrett MD
[2017-08-28] MEDS: Insulin Lispro (humaLOG) 100 Units/ml Inj SC SCH ×4 (04:52→22:00)
[2017-08-28 05:43] LABS: ABG ALLEN TEST YES; ABG MECHANICAL RATE 12; ARTERIAL BLOOD GAS HCO3 29.2 mmol/L (21-28); ARTERIAL BLOOD GAS MODE A/C; ARTERIAL BLOOD GAS O2 CAPACITY 14.7 mL/dL (16-24); ARTERIAL BLOOD GAS O2 CONTENT 14.4 ML/dL (15-23); ARTERIAL BLOOD GAS PH 7.51 (7.35-7.45); ARTERIAL BLOOD GAS PO2 167 mm/Hg (80-100); ATERIAL BLOOD GAS PEEP 5; CARBOXYHEMOGLOBIN 0 % (0.5-1.5); HHB 2.3 % (0.0-5.0); METHEMOGLOBIN 0.7 % (0.0-3.0)
[2017-08-28 06:49] LABS: HEMATOCRIT 30.1 % (34.0-47.0); MEAN CELL VOLUME 100.3 fl (81.0-99.0); MEAN CORPUSCULAR HEMOGLOBIN 33.9 pg (27.0-31.0); MEAN CORPUSCULAR HGB CONC 33.8 g/dL (33.0-37.0); RED CELL DISTRIBUTION WIDTH 13.6 % (11.5-14.5); WHITE BLOOD COUNT 8.4 K/uL (4.8-10.8)
[2017-08-28 07:09] LABS: ALB/GLOB RATIO 1.1 (1.0-2.1); BILIRUBIN,TOTAL 0.4 mg/dl (0.2-1.3); CALCIUM 9.2 mg/dL (8.4-10.2); POTASSIUM 4.2 MMOL/L (3.6-5.0); TOTAL PROTEIN 7.8 G/DL (6.3-8.2)
[2017-08-28] MEDS ORDERED: Insulin Lispro (humaLOG) 100 Units/ml Inj SC ONE (08:22)
[2017-08-28] MEDS: cefTRIAXone IV 1 gm in Dextros 50 ML IVPB SCH (08:31)
[2017-08-28] MEDS: Albuterol-Ipratrop 3 mg / 0.5 (3 ml) UD INH SCH ×4 (08:48→19:42)
[2017-08-28] MEDS ORDERED: methylPREDNISolone 20 MG in Sodium Chloride 0.9% 50 ML IVPB SCH (09:00)
[2017-08-28] MEDS: Azithromycin 500 MG in Sodium Chloride 0.9% 250 ML IVPB SCH (09:11)
[2017-08-28] MEDS: MethylPREDNISolone 40 mg Vial IVP SCH ×2 (09:21→16:09)
[2017-08-28] MEDS ORDERED: MethylPREDNISolone 40 mg Vial ONE (09:21)
--- NOTE | 2017-08-28 10:07 | PN ---
DATE: 08/28/2017 SUBJECTIVE: The patient is seen and examined. Interim events noted. Consults noted and appreciated. The patient remains in Intensive Care Unit, on ventilator, awake, responsive, but not able to provide informative history or review of systems. PHYSICAL EXAMINATION: GENERAL: The patient is orally intubated on mechanical ventilation via endotracheal tube, tolerating current ventilating without any distress; awake, responsive; complains of being hungry. VITAL SIGNS: Stable. HEART: S1 and S2, normal and regular. LUNGS: Improved bilateral air exchange. ABDOMEN: Soft, nontender. EXTREMITIES: No edema. No calf swelling. No tenderness. No acute ischemia. CENTRAL NERVOUS SYSTEM: Essentially unchanged. DIAGNOSTIC DATA: Available diagnostic data reviewed. Telemetry monitoring does not show significant arrhythmia. ASSESSMENT AND PLAN: Overall, the patient is slowly improving. Plan as ordered. Mario Jules MD
--- NOTE | 2017-08-28 10:53 | RAD ---
HISTORY: Intubated; with OGT COMPARISON: No prior. FINDINGS: ETT tip lies approximately overlies the level of the thoracic inlet -not clavicular head region. This could be advanced. . In situ NGT and/or OGT, tip of which has not been included on this film though distal aspect does lie well below EG junction. LUNGS: Interval improvement diffuse bilateral infiltrates PLEURA: No significant pleural effusion identified, no pneumothorax apparent. CARDIOVASCULAR: Heart size stable. No change bipolar pacemaker OSSEOUS STRUCTURES: No significant abnormalities. VISUALIZED UPPER ABDOMEN: Normal. OTHER FINDINGS: None. IMPRESSION: ETT tip overlies at the level of the thoracic inlet and could be advanced. NGT/NGT as above. Interval improvement diffuse bilateral infiltrates Findings discussed with Dr. Barrett at approximately 10:45 a.m. with written down and read back verification.
--- NOTE | 2017-08-28 11:59 | PCM.PROC ---
Procedures Attestation:: I certify that I have explained the specified Operation(s) or Procedure(s), risks, benefits and reasonable alternatives to the Patient and/or other person responsible. The opportunity was given to ask questions and all questions answered - Extubation RSBI Score: 9 Clinical Parameters: Resolution/Stabilization of disease process, Hemodynamically Stable, Intact Cough/Gag Reflex, Spontaneous Respirations, Acceptable Vent Settings (FIO2<50%, PEEP<8, PaO2>75, pH>7.25) Weaning Criteria Met: Yes General Weaning Approaches: Pressure Support Ventilation (PSV) Weaning, Spontaneous breathing trials and use of T-Piece Patient Condition: Patient has been successfully extubated and assessed Oxygen Therapy: O2 via Nasal Cannula Patient Tolerated Procedure: Well, No Complications
--- NOTE | 2017-08-28 16:35 | PN ---
CRITICAL CARE PROGRESS NOTE DATE: 08/28/2017 LOCATION: Patient in ICU bed #425. TIME SPENT: 35 minutes. The patient is seen and examined at the bedside. Events since admission reviewed. Past medical, surgical, and social history reviewed and noted. SUBJECTIVE: An 82-year-old female with new information from the patient having CA liver and CA left breast, status post chemo and radiation treatment. Also noted to have asthma, diabetes, hypertension and chronic systolic heart failure, arrhythmia, admitted through Emergency Room after she developed an acute onset of respiratory failure requiring intubation, suspected exacerbation of asthma, superimposed on chronic systolic heart failure. PAST SURGICAL HISTORY: Includes cholecystectomy, pacemaker insertion. PHYSICAL EXAMINATION: GENERAL: Patient currently extubated after the spontaneous breathing trial, remains in no distress, breathing on 4 L nasal cannula, saturating over 94%. VITAL SIGNS: Temperature 99.4, heart rate of 82, blood pressure 148/68, respiratory rate 18, saturation 100% on oxygen 2 L nasal cannula, intake 292, output 5500, negative balance 5208, weight 220 pounds. HEAD, EARS, EYES, NOSE AND THROAT: Pupils reactive. Conjunctivae pink. Sclerae white. NECK: Supple. Trachea central. CHEST: Bilateral breath sounds. Fine creps at the bases. HEART: Rhythm regular. S1, S2 normal. ABDOMEN: Bowel sounds present and soft. EXTREMITIES: 1 to 2+ pitting and pedal edema. DP palpable, reduced in intensity. SKIN: Without rash, warm to touch. NEUROLOGIC: Nonfocal. LABORATORY DATA: WBC 8.4, hemoglobin 10.2, hematocrit 30.1, platelet count 96. PT of 11.9, INR 1, PTT 32.5. ABG: The pH 7.51, pCO2 of 36, pO2 of 167, saturation 97.7 on AC 12, 500, 60% with PEEP of 5. SMA-7: Sodium 140, potassium 4.2, chloride of 102, CO2 of 27, blood urea nitrogen 48, creatinine 1.6, glucose random 400 to 425, calcium 9.2, total bilirubin 0.4, AST 36 and ALT 38, alkaline phosphatase 63, albumin of 4, total protein 7.8. Urine analysis is negative. Serology negative for influenza. CURRENT MEDICATIONS: Solu-Medrol 20 mg IV q. 8, Protonix 40 daily, Accu-Chek with regular insulin coverage, Levemir 20 units subcu in the morning, 75 units subcu in the evening, heparin of 5000 units subcu q. 8, furosemide 40 mg IV b.i.d., ceftriaxone 1 g IV daily, Zithromax 250 mg IV daily. MICROBIOLOGY: None reported. IMAGING: Chest x-ray, interval improvement, diffuse bilateral infiltrates. ASSESSMENT AND PLAN: 1. NEUROLOGIC: Alert, awake, follows commands appropriate. CT head negative. 2. PULMONARY: Status post ventilator-dependent, hypoxemic respiratory failure, currently extubated after spontaneous trial, tolerating well on 4 L nasal cannula. Continue DuoNeb 3 mL via nebulizer q. 6 hours, reduce Solu-Medrol to 20 mg IV q. 8. 3. CARDIAC: Suspected systolic heart failure, [id number], on IV Lasix 40 mg IV b.i.d., we will reduce it to 20 mg IV q. 12. 4. ENDOCRINE: Diabetes mellitus type 2 with hyperglycemia, probably related to the steroid and stress. Increase the insulin coverage with Levemir morning and evening followed by bolus insulin for better control. 5. GASTROINTESTINAL: No acute emesis, continue prophylaxis. 6. Hypertension, resume medications p.o. 7. Keep the head of bed 30-degree up. 8. Oral care. 9. Deep venous thrombosis, gastrointestinal prophylaxis. 10. Monitor respiratory status. 11. Out of bed to chair as tolerated. 12. Start clear liquids, advance to regular diet as tolerated. Sterling Barrett MD
--- NOTE | 2017-08-28 20:57 | CP.PCM.PN ---
Subjective - Date & Time of Evaluation Date of Evaluation: 08/28/17 Time of Evaluation: 13:00 - Subjective Subjective: renal follow up note extubated this am good urine output PE: lying in bed improved heent normal op moist s1s2 present bilateral air entry equal abd soft edema + AO times 3 A&P; ELAINE/hyperkalemia/chf/resp failure/htn non oliguric =, cr improved, sec to acute chf monitor urine output continue lasix hyperkalemia: improved bp stable please call us if any qs [phone] Objective - Vital Signs/Intake and Output Vital Signs (last 24 hours): Temp Pulse Resp BP Pulse Ox 99.5 F 83 18 136/82 100 08/28/17 20:00 08/28/17 20:00 08/28/17 18:00 08/28/17 20:00 08/28/17 20:00 Intake and Output: 08/28/17 08/29/17 18:59 06:59 Intake Total 1320 Output Total 2100 Balance -780 - Medications Medications: Current Medications Albuterol/Ipratropium (Duoneb 3 Mg/0.5 Mg (3 Ml) Ud) 3 ml INH RQ4 PRN PRN Reason: Shortness of Breath Albuterol/Ipratropium (Duoneb 3 Mg/0.5 Mg (3 Ml) Ud) 3 ml INH RQID [facility] Last Admin: 08/28/17 19:42 Dose: 3 ml Furosemide (Lasix) 20 mg IVP BID [facility] Last Admin: 08/28/17 16:11 Dose: 20 mg Heparin Sodium (Porcine) (Heparin) 5,000 units SC Q8 [facility] PRN Reason: Protocol Last Admin: 08/28/17 16:09 Dose: 5,000 units Ceftriaxone Sodium (Rocephin Iv 1 Gm Duplex) 50 mls @ 50 mls/hr IVPB DAILY [facility] PRN Reason: Protocol Last Admin: 08/28/17 08:31 Dose: 50 mls/hr Azithromycin 500 mg/ Sodium (Chloride) 250 mls @ 250 mls/hr IVPB DAILY [facility] PRN Reason: Protocol Last Admin: 08/28/17 09:11 Dose: 250 mls/hr Insulin Detemir (Levemir) 25 units SC HS [facility] Insulin Detemir (Levemir) 20 units SC ACB [facility] Insulin Human Lispro (Humalog) 0 units SC Q6 [facility] PRN Reason: Protocol Last Admin: 08/28/17 16:10 Dose: 8 units Methylprednisolone (Solu-Medrol) 20 mg IVP Q8 [facility] Last Admin: 08/28/17 16:09 Dose: 20 mg Pantoprazole Sodium (Protonix Inj) 40 mg IVP DAILY [facility] Last Admin: 08/28/17 08:30 Dose: 40 mg - Labs Labs: 08/28/17 05:30 08/28/17 05:30 PT 11.3 Seconds (9.8-13.1) 08/27/17 00:45 INR 1.0 (0.9-1.2) 08/27/17 00:45 APTT 32.5 Seconds (25.6-37.1) 08/27/17 00:45
[2017-08-28] MEDS: Insulin Detemir 100 Units/ml Inj SC SCH (21:35)
[2017-08-29] MEDS: MethylPREDNISolone 40 mg Vial IVP SCH ×3 (01:55→17:58)
[2017-08-29 05:06] LABS: HEMATOCRIT 29.2 % (34.0-47.0); MEAN CELL VOLUME 98.8 fl (81.0-99.0); MEAN CORPUSCULAR HEMOGLOBIN 33.3 pg (27.0-31.0); MEAN CORPUSCULAR HGB CONC 33.7 g/dL (33.0-37.0); RED CELL DISTRIBUTION WIDTH 13.5 % (11.5-14.5); WHITE BLOOD COUNT 7.8 K/uL (4.8-10.8)
[2017-08-29 05:22] LABS: BILIRUBIN,TOTAL 0.2 mg/dl (0.2-1.3); CALCIUM 9.4 mg/dL (8.4-10.2); POTASSIUM 4.2 MMOL/L (3.6-5.0); TOTAL PROTEIN 7.6 G/DL (6.3-8.2)
[2017-08-29] MEDS: Albuterol-Ipratrop 3 mg / 0.5 (3 ml) UD INH PRN (06:36)
[2017-08-29] MEDS: Insulin Lispro (humaLOG) 100 Units/ml Inj SC SCH ×4 (06:47→21:53)
[2017-08-29] MEDS ORDERED: Insulin Detemir 100 Units/ml Inj SC SCH (07:30)
[2017-08-29] MEDS: Albuterol-Ipratrop 3 mg / 0.5 (3 ml) UD INH SCH ×4 (08:15→19:46)
--- NOTE | 2017-08-29 08:37 | HP ---
CHIEF COMPLAINT: Shortness of breath. HISTORY OF PRESENT ILLNESS: This is an 82-year-old female, patient of Dr. Menchaca, known case of bronchial asthma, coronary artery disease, cardiac arrhythmia status post pacemaker placement, diabetes and hypertension who was having breathing difficulty and cough for two days. The patient was also seen him director recently and the patient's symptom got worse and EMS was called, who found the patient in respiratory distress and then the patient was intubated and was brought to emergency room and was admitted for further management. REVIEW OF SYSTEMS: Not available as the patient is intubated with mechanical ventilation. PAST MEDICAL HISTORY: Significant for hypertension, diabetes and asthma. PAST SURGICAL HISTORY: Remarkable for pacemaker and gallbladder surgery. PERSONAL HISTORY: The patient is nonsmoker and nondrinker. No substance abuse. MEDICATIONS: The patient is on multiple medication, which is as per reconciliation sheet, which was reviewed. ALLERGIES: THE PATIENT IS NOT ALLERGIC TO ANY MEDICATION. FAMILY HISTORY: Noncontributory. PHYSICAL EXAMINATION GENERAL: The patient is orally intubated via endotracheal tube, on mechanical ventilation, tolerating current vent setting without any acute respiratory distress. VITAL SIGNS: Temperature 97.4, pulse 70, respirations 12, blood pressure 136/64. HEENT: Pupils reacting to light. NECK: No JVD. No thyromegaly. No lymphadenopathy. No nystagmus. Normocephalic and atraumatic skull. ET tube is in good position and functioning. HEART: S1 and S2 normal and regular. No significant murmur, gallop, or rub is heard. LUNGS: Shows good bilateral air exchange. No rales or rhonchi. ABDOMEN: Soft, nontender. No organomegaly. No fluid. Bowel sounds are plus. EXTREMITIES: No edema. No calf swelling. No tenderness. No acute ischemia. CENTRAL NERVOUS SYSTEM: The patient is sedated and on mechanical ventilation, thorough COTTON FEEDER exam is not possible. DIAGNOSTIC DATA: Available diagnostic data reviewed. WBC 5.5, hemoglobin 9.2, hematocrit 27, platelet 103. ABG shows pH 7.59, saturation is 99, pO2 of 193, pCO2 is 26. Sodium 140, potassium 5.5, chloride 103, bicarb 27, BUN 51, creatinine 2.1. Accu-Cheks are 291 and 330. Cholesterol level is 176. CAT scan of the head is unremarkable. ADMITTING IMPRESSION: Acute respiratory failure from exacerbation of bronchial asthma, hypertension, type 2 diabetes with hyperglycemia. PLAN: If telemetry monitoring does not show significant arrhythmias, plan as ordered. Mario Jules MD
[2017-08-29] MEDS: cefTRIAXone IV 1 gm in Dextros 50 ML IVPB SCH (08:40)
[2017-08-29] MEDS: Azithromycin 500 MG in Sodium Chloride 0.9% 250 ML IVPB SCH (08:41)
--- NOTE | 2017-08-29 09:46 | CP.CCUPN ---
CCU Subjective - Physician Review Events Since Last Encounter (Free Text): 08/29/17 13:45 The patient was Seen/interviewed and examined by me at the bedside, Medical records reviewed and Management issues were discussed and formulated with the house staff. Pt's current status is discussed with pt / pt's family Patient successfully extubated and doing well on 3L nasal cannula Clinically improving, hemodynamically improved No Vasopressors Awake, comfortable, NAD Pt AAO x3. Alert, follows some commands Denies any chest pain, SOB or Palpitations Afebrile, NSR on the monitor Last 24H I&O 1320/3300 This morning labs revealed no Leucocytosis, Plat down to 74, improved renal function BUN/Cr up to 42/1.4 CCU Objective - Vital Signs / Intake & Output Vital Signs (Last 4 hours): Vital Signs Temp Pulse Resp BP Pulse Ox 08/29/17 08:37 141/67 08/29/17 08:00 99.4 F 88 24 148/71 98 08/29/17 06:00 82 16 155/26 H 93 L Intake and Output (Last 8hrs): Intake & Output 08/28/17 08/29/17 08/29/17 22:59 06:59 14:59 Intake Total 360 Output Total 2100 1200 Balance -1740 -1200 Weight 210 lb Intake: Oral 360 Output: Urine 2100 1200 Urethral (Henry) 2100 1200 - Physical Exam Head: Positive for: Atraumatic, Normocephalic Pupils: Positive for: PERRL Extroacular Muscles: Positive for: EOMI Conjunctiva: Positive for: Normal. Negative for: Injected, Icteric Mouth: Positive for: Moist Mucous Membranes Neck: Positive for: Normal Range of Motion, Trachea Midline. Negative for: Meningeal Signs, MIDLINE TENDERNESS, Paraspinal Tenderness, JVD, Lymphadenopathy , Bruit, Other Respiratory/Chest: Positive for: Decreased Breath Sounds, Rhonchi. Negative for : Respiratory Distress, Accessory Muscle Use, Wheezes Cardiovascular: Positive for: Regular Rate and Rhythm, Normal S1, S2, Peripheal Pulses Present. Negative for: Murmurs, Irregular Rhythm Upper Extremity: Positive for: Normal Inspection, Norm 2-Pt Discrimination Lower Extremity: Positive for: Edema, NORMAL PULSES, Capillary Refill < 2 s. Negative for: CALF TENDERNESS, Cyanosis - Medications Active Medications: Active Medications Generic Name Dose Route Start Last Admin Trade Name Freq PRN Reason Stop Dose Admin Albuterol/Ipratropium 3 ml 08/27/17 02:20 08/29/17 06:36 Duoneb 3 Mg/0.5 Mg (3 Ml) Ud INH 3 ml RQ4 PRN Administration Shortness of Breath Albuterol/Ipratropium 3 ml 08/27/17 16:00 08/29/17 08:15 Duoneb 3 Mg/0.5 Mg (3 Ml) Ud INH Not Given RQID [facility] Furosemide 20 mg 08/28/17 17:00 08/29/17 08:37 Lasix IVP 20 mg BID [facility] Administration Heparin Sodium (Porcine) 5,000 units 08/27/17 09:00 08/29/17 08:36 Heparin SC 5,000 units Q8 [facility] Administration Protocol Ceftriaxone Sodium 50 mls @ 50 mls/hr 08/27/17 13:00 08/29/17 08:40 Rocephin Iv 1 Gm Duplex IVPB 50 mls/hr DAILY [facility] Administration Protocol Azithromycin 500 mg/ Sodium 250 mls @ 250 mls/hr 08/27/17 13:00 08/29/17 08: 41 Chloride IVPB 250 mls/hr DAILY [facility] Administration Protocol Insulin Detemir 25 units 08/28/17 22:00 08/28/17 21:35 Levemir SC 25 u HS [facility] Administration Insulin Detemir 20 units 08/29/17 07:30 08/29/17 08:38 Levemir SC 20 units ACB [facility] Administration Insulin Human Lispro 0 units 08/27/17 11:00 08/29/17 06:47 Humalog SC 8 units Q6 [facility] Administration Protocol Methylprednisolone 20 mg 08/28/17 09:00 08/29/17 08:37 Solu-Medrol IVP 20 mg Q8 [facility] Administration Pantoprazole Sodium 40 mg 08/27/17 09:00 08/29/17 08:39 Protonix Inj IVP 40 mg DAILY [facility] Administration - Patient Studies Lab Studies: Microbiology Studies 08/27/17 08:00 MRSA Culture (Admit) - Final Naris MRSA NOT DETECTED 08/27/17 08:00 Blood Culture - Preliminary Blood NO GROWTH AFTER 24 HOURS 08/27/17 08:00 Blood Culture - Preliminary Blood NO GROWTH AFTER 24 HOURS Lab Studies 08/29/17 08/29/17 08/29/17 Range/Units 05:41 04:20 04:20 WBC 7.8 (4.8-10.8) K/uL RBC 2.96 L (3.80-5.20) Mil/uL Hgb 9.8 L (12.0-16.0) g/dL Hct 29.2 L (34.0-47.0) % MCV 98.8 (81.0-99.0) fl MCH 33.3 H (27.0-31.0) pg MCHC 33.7 (33.0-37.0) g/dL RDW 13.5 (11.5-14.5) % Plt Count 74 L D (130-400) K/uL Sodium 142 (132-148) mmol/l Potassium 4.2 (3.6-5.0) MMOL/L Chloride 100 (98-107) mmol/L Carbon Dioxide 32 H (22-30) mmol/L Anion Gap 14 (10-20) BUN 42 H (7-17) mg/dl Creatinine 1.4 H (0.7-1.2) mg/dL Est GFR ( Amer) 43 Est GFR (Non-Af Amer) 36 POC Glucose (mg/dL) 361 H (65-110) mg/dL Random Glucose 360 H (65-105) mg/dL Calcium 9.4 (8.4-10.2) mg/dL Total Bilirubin 0.2 (0.2-1.3) mg/dl AST 33 (14-36) U/L ALT 39 (9-52) U/L Alkaline Phosphatase 65 (38-126) U/L Total Protein 7.6 (6.3-8.2) G/DL Albumin 3.8 (3.5-5.0) g/dL Globulin 3.7 (2.2-3.9) gm/dL Albumin/Globulin Ratio 1.0 (1.0-2.1) 08/28/17 08/28/17 08/28/17 Range/Units 21:34 15:15 11:22 WBC (4.8-10.8) K/uL RBC (3.80-5.20) Mil/uL Hgb (12.0-16.0) g/dL Hct (34.0-47.0) % MCV (81.0-99.0) fl MCH (27.0-31.0) pg MCHC (33.0-37.0) g/dL RDW (11.5-14.5) % Plt Count (130-400) K/uL Sodium (132-148) mmol/l Potassium (3.6-5.0) MMOL/L Chloride (98-107) mmol/L Carbon Dioxide (22-30) mmol/L Anion Gap (10-20) BUN (7-17) mg/dl Creatinine (0.7-1.2) mg/dL Est GFR ( Amer) Est GFR (Non-Af Amer) POC Glucose (mg/dL) 459 H* 383 H > 500 H* (65-110) mg/dL Random Glucose (65-105) mg/dL Calcium (8.4-10.2) mg/dL Total Bilirubin (0.2-1.3) mg/dl AST (14-36) U/L ALT (9-52) U/L Alkaline Phosphatase (38-126) U/L Total Protein (6.3-8.2) G/DL Albumin (3.5-5.0) g/dL Globulin (2.2-3.9) gm/dL Albumin/Globulin Ratio (1.0-2.1) Laboratory Results - last 24 hr 08/28/17 08/28/17 08/28/17 11:22 15:15 21:34 WBC RBC Hgb Hct MCV MCH MCHC RDW Plt Count Sodium Potassium Chloride Carbon Dioxide Anion Gap BUN Creatinine Est GFR ( Amer) Est GFR (Non-Af Amer) POC Glucose (mg/dL) > 500 H* 383 H 459 H* Random Glucose Calcium Total Bilirubin AST ALT Alkaline Phosphatase Total Protein Albumin Globulin Albumin/Globulin Ratio 08/29/17 08/29/17 08/29/17 04:20 04:20 05:41 WBC 7.8 RBC 2.96 L Hgb 9.8 L Hct 29.2 L MCV 98.8 MCH 33.3 H MCHC 33.7 RDW 13.5 Plt Count 74 L D Sodium 142 Potassium 4.2 Chloride 100 Carbon Dioxide 32 H Anion Gap 14 BUN 42 H Creatinine 1.4 H Est GFR ( Amer) 43 Est GFR (Non-Af Amer) 36 POC Glucose (mg/dL) 361 H Random Glucose 360 H Calcium 9.4 Total Bilirubin 0.2 AST 33 ALT 39 Alkaline Phosphatase 65 Total Protein 7.6 Albumin 3.8 Globulin 3.7 Albumin/Globulin Ratio 1.0 Fingerstick Blood Sugar Results: 361 Review of Systems - Cardiovascular Cardiovascular: absent: As Per HPI, Acrocyanosis, Chest Pain, Chest Pain at Rest , Chest Pain with Activity, Claudication, Diaphoresis, Dyspnea, Dyspnea on Exertion, Edema, Irregular Heart Rhythm, Pain Radiating to Arm/Neck/Jaw, Leg Edema, Leg Ulcers, Lightheadedness, Orthopnea, Palpitations, Paroxysmal Nocturnal Dyspnea, Pedal Edema, Radiating Pain, Rapid Heart Rate, Slow Heart Rate, Syncope, Other, UNREMARKABLE - Respiratory Respiratory: absent: As Per HPI, Cough, Dyspnea, Hemoptysis, Dyspnea on Exertion , Wheezing, Snoring, Stridor, Pain on Inspiration, Chest Congestion, Excessive Mucous Production, Change in Mucous Color, Pain with Coughing, Other, UNREMARKABLE Critical Care Progress Note - Extremities/Vascular Does the Patient have a Central Venous Catheter?: No Does the Patient need a Central Venous Catheter?: No Does the Patient have a Henry Catheter?: Yes Does the Patient need a Henry Catheter?: No (WILL DISCONTINUE HENRY TODAY) - Nutrition Nutrition: Nutrition Category Date Time Status Liquid Diet [DIET] Diets 08/28/17 Lunch Active Assessment/Plan (1) Respiratory failure Current Visit: Yes Status: Acute Comment: Successfully extubated Continue Solu-Medrol 20 mg IVP Q8 [facility] Continue Diuresis with Lasix 20 mg IVP BID Continue IV Antibiotics (2) Systolic CHF, acute on chronic Current Visit: Yes Status: Acute Comment: Lasix 40 mg IVP BID Optimize fluid status Strict I&O, daily Wt Negative fluid balance (3) Asthma attack Current Visit: Yes Status: Acute Comment: IV Solumedrol Albuterol/Ipratropium INH RQ4 (4) Moderate COPD (chronic obstructive pulmonary disease) Current Visit: Yes Status: Acute (5) Thrombocytopenia Current Visit: Yes Status: Acute Comment: Multifactorial mostly for sepsis and malignancy No signs of bleeding Hod SQ Heparin for now (6) Prophylactic measure Current Visit: Yes Status: Acute Comment: DVT PPX: SCDs, SQH (on hold due to low platelets) GI PPX: Protonix
--- NOTE | 2017-08-29 09:52 | CP.PCM.PN ---
Subjective - Date & Time of Evaluation Date of Evaluation: 08/29/17 Time of Evaluation: 09:49 - Subjective Subjective: Patient sitting up in bed Patient extubated. Appeared to be comfortable. Vital sign noted to be stable. Physical exam Chest no rales Heart no rubs Abdomen soft Extremity no edema Lab reviewed Serum creatinine coming down and improving electrolyte acceptable. Acute kidney injury recovering. Diabetes mellitus as per primary team. Discussed with the cable engineer he will be calling the oncologist for further decision about the chemotherapy. Patient receiving chemotherapy for cancer of the kidney. Objective - Vital Signs/Intake and Output Vital Signs (last 24 hours): Temp Pulse Resp BP Pulse Ox 99.4 F 88 24 141/67 98 08/29/17 08:00 08/29/17 08:00 08/29/17 08:00 08/29/17 08:37 08/29/17 08:00 Intake and Output: 08/29/17 08/29/17 06:59 18:59 Output Total 1200 Balance -1200 - Medications Medications: Current Medications Albuterol/Ipratropium (Duoneb 3 Mg/0.5 Mg (3 Ml) Ud) 3 ml INH RQ4 PRN PRN Reason: Shortness of Breath Last Admin: 08/29/17 06:36 Dose: 3 ml Albuterol/Ipratropium (Duoneb 3 Mg/0.5 Mg (3 Ml) Ud) 3 ml INH RQID [facility] Last Admin: 08/29/17 08:15 Dose: Not Given Furosemide (Lasix) 20 mg IVP BID [facility] Last Admin: 08/29/17 08:37 Dose: 20 mg Heparin Sodium (Porcine) (Heparin) 5,000 units SC Q8 [facility] PRN Reason: Protocol Last Admin: 08/29/17 08:36 Dose: 5,000 units Ceftriaxone Sodium (Rocephin Iv 1 Gm Duplex) 50 mls @ 50 mls/hr IVPB DAILY [facility] PRN Reason: Protocol Last Admin: 08/29/17 08:40 Dose: 50 mls/hr Azithromycin 500 mg/ Sodium (Chloride) 250 mls @ 250 mls/hr IVPB DAILY [facility] PRN Reason: Protocol Last Admin: 08/29/17 08:41 Dose: 250 mls/hr Insulin Detemir (Levemir) 25 units SC [facility] Last Admin: 08/28/17 21:35 Dose: 25 u Insulin Detemir (Levemir) 20 units SC ACB [facility] Last Admin: 08/29/17 08:38 Dose: 20 units Insulin Human Lispro (Humalog) 0 units SC Q6 [facility] PRN Reason: Protocol Last Admin: 08/29/17 06:47 Dose: 8 units Methylprednisolone (Solu-Medrol) 20 mg IVP Q8 [facility] Last Admin: 08/29/17 08:37 Dose: 20 mg Pantoprazole Sodium (Protonix Inj) 40 mg IVP DAILY [facility] Last Admin: 08/29/17 08:39 Dose: 40 mg - Labs Labs: 08/29/17 04:20 08/29/17 04:20 PT 11.3 Seconds (9.8-13.1) 08/27/17 00:45 INR 1.0 (0.9-1.2) 08/27/17 00:45 APTT 32.5 Seconds (25.6-37.1) 08/27/17 00:45 Assessment and Plan (1) DM2 (diabetes mellitus, type 2) Status: Acute (2) HTN (hypertension) Status: Acute
--- NOTE | 2017-08-29 10:47 | PN ---
DATE: 08/29/2017 SUBJECTIVE: Patient is seen and examined. Interim events noted. Consults noted and appreciated. Case discussed with rug dyer helper. Patient remains in Intensive Care Unit and feels okay. Denies any complaint of chest pain or shortness of breath. Leg cramps improved. PHYSICAL EXAMINATION: GENERAL: Patient is in no acute distress. VITAL SIGNS: Stable. HEART: S1 and S2, normal and regular. LUNGS: Good bilateral air exchange. ABDOMEN: Soft, nontender. EXTREMITIES: No edema. No calf swelling. No tenderness. No acute ischemia. CENTRAL NERVOUS SYSTEM: Essentially unchanged. DIAGNOSTIC DATA: Available diagnostic data reviewed. Telemetry monitoring does not show significant arrhythmias. ASSESSMENT AND PLAN: Overall, patient is medically stable. Patient needs to have MRA and MRI. Plan as ordered. Case and plan discussed with patient. Mario Jules MD
--- NOTE | 2017-08-29 11:59 | PQF GENQUE ---
Dr. Jules, 2 (two) queries as follows: 1. Please clarify type of asthma: if known: i.e. Mild intermittent Mild persistent Moderate persistent Severe persistent With chronic lung disease (please document specific chronic lung disease) Other (please specify) Clinically unable to determine Unknown 2. COPD ruled in or ruled out? ER note: Moderate COPD Cardiology note: HPI: She saw for pulmonary evaluation COPD/ sleep apnea. Plan includes: (4) Moderate COPD (chronic obstructive pulmonary disease This form is a permanent part of the medical record Clarification of your documentation is requested to better reflect the severity of illness and intensity of treatment of your patient. Indicators present [] Specify: [] [] Specify: [] [] Specify: [] [] Specify: [] Location in the medical record that reflects the above clinical findings: [] Treatment Provided: [] PHYSICIAN'S RESPONSE Based on your medical judgment of the clinical indicators outlined above please clarify the following: [] Practitioner response [] If unable to determine, please check the box, sign and date. Present On Admission (POA) Indicator: [] Present at the time of admission [] Not present at the time of admission [] Clinically Undetermined In responding to this query, please exercise your independent professional judgment. The fact that a question is asked does not imply that any particular answer is desired or expected. Thank you for your clarification on this documentation. If you have any questions please call. * Thank you, Ute Marsh RN ext. #[phone] MTDD
[2017-08-29] MEDS ORDERED: Influenza Vaccine 18yr & older 0.5 ML/45 MCG SYR IM ONE (14:52)
--- NOTE | 2017-08-29 16:55 | CARD ---
APPROVED REPORT EXAM: Two-dimensional and M-mode echocardiogram with Doppler and color Doppler. Other Information Quality : GoodRhythm : NSR INDICATION Congestive Heart Failure 2D DIMENSIONS IVSd1.56 (0.7-1.1cm)LVDd4.94 (3.9-5.9cm) LVOT Diameter2.05 (1.8-2.4cm)PWd1.28 (0.7-1.1cm) IVSs2.06 (0.8-1.2cm)LVDs3.32 (2.5-4.0cm) FS (%) 32.7 %PWs1.77 (0.8-1.2cm) LVEF (%)40.0 (>50%) M-Mode DIMENSIONS Left Atrium (MM)3.92 (2.5-4.0cm)IVSd0.96 (0.7-1.1cm) Aortic Root3.60 (2.2-3.7cm)LVDd6.28 (4.0-5.6cm) Aortic Cusp Exc.2.08 (1.5-2.0cm)PWd1.40 (0.7-1.1cm) IVSs1.40 cmFS (%) 39 % LVDs3.84 (2.0-3.8cm)PWs1.76 cm Mitral Valve MV E Gsdszmve098.1cm/sMV DECEL [id number] A Ctgdciwy511.3cm/s MV [id number]/A ratio0.8MVA (PHT)5.02cm2 TDI Lateral E' Peak V5.79cm/sMedial E' Peak V9.29cm/sE/Lateral E'17.5 E/Medial E'10.9 Pulmonary Valve PV Peak Wxtizmjo260.8cm/s Tricuspid Valve TR Peak Fsbnyouy599bs/sRAP [id number] Peak Gr.37mmHg [id number] LEFT VENTRICLE The left ventricle is normal size. There is mild to moderate concentric left ventricular hypertrophy. The systolic function is moderately impaired. There is global hypokinesis of the left ventricle. Transmitral Doppler flow pattern is Grade I-abnormal relaxation pattern. RIGHT VENTRICLE The right ventricle is normal size. There is normal right ventricular wall thickness. The right ventricular systolic function is normal. There is a pacemaker lead in the right ventricle. ATRIA The left atrium size is normal. The right atrium size is normal. AORTIC VALVE The aortic valve is not well visualized. No aortic regurgitation is present. There is no aortic valvular stenosis. MITRAL VALVE The mitral valve is mildly thickened. There is no mitral valve stenosis. There is no mitral valve regurgitation noted. TRICUSPID VALVE The tricuspid valve is normal in structure. There is mild tricuspid regurgitation. There is mild to moderate pulmonary hypertension. PULMONIC VALVE The pulmonary valve is normal in structure. There is no pulmonic valvular regurgitation. GREAT VESSELS The aortic root is normal in size. The IVC is normal in size and collapses >50% with inspiration. PERICARDIAL EFFUSION There is a trace loculated anterior pericardial effusion. <Conclusion> The left ventricle is normal size. There is mild to moderate concentric left ventricular hypertrophy. The systolic function is moderately impaired. There is global hypokinesis of the left ventricle. Transmitral Doppler flow pattern is Grade I-abnormal relaxation pattern. There is mild tricuspid regurgitation. There is mild to moderate pulmonary hypertension.
[2017-08-29] MEDS: Insulin Detemir 100 Units/ml Inj SC SCH (21:54)
[2017-08-30] MEDS: MethylPREDNISolone 40 mg Vial IVP SCH ×3 (01:00→17:04)
[2017-08-30] MEDS: Insulin Lispro (humaLOG) 100 Units/ml Inj SC SCH ×4 (04:54→22:28)
[2017-08-30 05:52] LABS: HEMATOCRIT 31.5 % (34.0-47.0); MEAN CELL VOLUME 98.6 fl (81.0-99.0); MEAN CORPUSCULAR HEMOGLOBIN 33.2 pg (27.0-31.0); MEAN CORPUSCULAR HGB CONC 33.6 g/dL (33.0-37.0); RED CELL DISTRIBUTION WIDTH 13.3 % (11.5-14.5)
[2017-08-30 06:02] LABS: BILIRUBIN,TOTAL 0.4 mg/dl (0.2-1.3); CALCIUM 9.4 mg/dL (8.4-10.2); POTASSIUM 4.2 MMOL/L (3.6-5.0); TOTAL PROTEIN 7.7 G/DL (6.3-8.2)
[2017-08-30] MEDS: Albuterol-Ipratrop 3 mg / 0.5 (3 ml) UD INH SCH ×4 (08:02→19:11)
[2017-08-30] MEDS: cefTRIAXone IV 1 gm in Dextros 50 ML IVPB SCH (09:13)
[2017-08-30] MEDS: Azithromycin 500 MG in Sodium Chloride 0.9% 250 ML IVPB SCH (09:21)
--- NOTE | 2017-08-30 09:47 | PN ---
DATE: 08/29/2017 SUBJECTIVE: The patient is seen and examined. Interim events noted. Consults noted and appreciated. Case discussed with children's aide. Patient was extubated yesterday. Feels okay. Denies any chest pain or shortness of breath. PHYSICAL EXAMINATION: GENERAL: Patient is in no acute distress. VITAL SIGNS: Stable. HEART: S1 and S2, normal and regular. LUNGS: Good bilateral air exchange. ABDOMEN: Soft, nontender. EXTREMITIES: No edema. No calf swelling. No tenderness. No acute ischemia. CENTRAL NERVOUS SYSTEM: Essentially unchanged. DIAGNOSTIC DATA: Available diagnostic data reviewed. Telemetry monitoring does not reveal significant arrhythmia. ASSESSMENT AND PLAN: Overall, patient is clinically stable and improving. Plan as ordered. Mario Jules MD
--- NOTE | 2017-08-30 11:19 | CP.PCM.PN ---
<Demarco Calzada - Last Filed: 08/30/17 12:11> Subjective - Date & Time of Evaluation Date of Evaluation: 08/30/17 Time of Evaluation: 11:19 - Subjective Subjective: Patient seen and examined iwth attending Doing much better today. She was extubated yesterday. She is receiving neb treatment at time of visit. Cough upon inspiration, has bibasilar crackles on exam, otherwise good air entry. Continue with nebulizer treatments. Repeat chest XR today. If pt remains stable, she may be transferred out of ICU to medical floor. Objective - Vital Signs/Intake and Output Vital Signs (last 24 hours): Temp Pulse Resp BP Pulse Ox 99.6 F 80 12 159/68 H 95 08/30/17 08:00 08/30/17 08:00 08/30/17 08:00 08/30/17 09:15 08/30/17 08:00 Intake and Output: 08/30/17 08/30/17 06:59 18:59 Intake Total 240 Output Total 450 Balance -210 - Medications Medications: Current Medications Albuterol/Ipratropium (Duoneb 3 Mg/0.5 Mg (3 Ml) Ud) 3 ml INH RQ4 PRN PRN Reason: Shortness of Breath Last Admin: 08/29/17 06:36 Dose: 3 ml Albuterol/Ipratropium (Duoneb 3 Mg/0.5 Mg (3 Ml) Ud) 3 ml INH RQID [facility] Last Admin: 08/30/17 11:00 Dose: 3 ml Furosemide (Lasix) 20 mg IVP BID [facility] Last Admin: 08/30/17 09:15 Dose: 20 mg Heparin Sodium (Porcine) (Heparin) 5,000 units SC Q8 [facility] PRN Reason: Protocol Last Admin: 08/29/17 08:36 Dose: 5,000 units Ceftriaxone Sodium (Rocephin Iv 1 Gm Duplex) 50 mls @ 50 mls/hr IVPB DAILY [facility] PRN Reason: Protocol Last Admin: 08/30/17 09:13 Dose: 50 mls/hr Azithromycin 500 mg/ Sodium (Chloride) 250 mls @ 250 mls/hr IVPB DAILY [facility] PRN Reason: Protocol Last Admin: 08/30/17 09:21 Dose: 250 mls/hr Insulin Detemir (Levemir) 25 units SC HS [facility] Last Admin: 08/29/17 21:54 Dose: 25 u Insulin Detemir (Levemir) 25 units SC ACB [facility] Insulin Human Lispro (Humalog) 0 units SC Q6 [facility] PRN Reason: Protocol Last Admin: 08/30/17 04:54 Dose: 2 units Methylprednisolone (Solu-Medrol) 20 mg IVP Q8 [facility] Last Admin: 08/30/17 09:14 Dose: 20 mg Pantoprazole Sodium (Protonix Inj) 40 mg IVP DAILY [facility] Last Admin: 08/29/17 08:39 Dose: 40 mg - Labs Labs: 08/30/17 04:30 08/30/17 04:30 PT 11.3 Seconds (9.8-13.1) 08/27/17 00:45 INR 1.0 (0.9-1.2) 08/27/17 00:45 APTT 32.5 Seconds (25.6-37.1) 08/27/17 00:45 - Constitutional Appears: Non-toxic, No Acute Distress - Head Exam Head Exam: ATRAUMATIC, NORMAL INSPECTION, NORMOCEPHALIC - Respiratory Exam Respiratory Exam: absent: Accessory Muscle Use, Decreased Breath Sounds, Respiratory Distress Additional comments: bibasilar crackles, good air entry bilaterally cough with inspiration - Cardiovascular Exam Cardiovascular Exam: +S1, +S2 Additional comments: paced rhythm - GI/Abdominal Exam GI & Abdominal Exam: Soft, Normal Bowel Sounds. absent: Distended, Firm, Guarding, Tenderness - Extremities Exam Extremities Exam: Normal Inspection - Neurological Exam Neurological Exam: Alert, Awake, CN II-XII Intact - Psychiatric Exam Psychiatric exam: Normal Affect, Normal Mood - Skin Skin Exam: Dry, Intact, Normal Color, Warm Assessment and Plan - Assessment and Plan (Free Text) Assessment: 82 year old female admitted with asthma exacerbation with acute respiratory failure. Patient initially intubated, s/p extubation. She is clinically improving. Responding well to nebulizer treatments. Upon reevaluation, patient sitting upright in chair, without oxygen via NC with O2 saturation of 99% on room air. Patient would like to go home. Echo Aug 2017: moderately impaired EF, mild TR, mild to mod pulm htn Repeat CXR 08/30: Cardiomegaly, pulmonary venous congestion and left pleural effusion. Underlying left airspace disease cannot be excluded #Asthma exacerbation #Acute respiratory failure-resolved #CHF with reduced EF #Thrombocytopenia #Anemia, chronic #HTN #DVT PPX -Continue with nebulizer treatments -patient takes iron for anemia, chronic can be managed as outpatient -monitor respiratory status -pt on scds due to thrombocytopenia -home meds reconciled, monitor BP now that home medications have been resumed. <Mario Jules - Last Filed: 09/01/17 10:35> Objective - Vital Signs/Intake and Output Vital Signs (last 24 hours): Temp Pulse Resp BP Pulse Ox 98.3 F 70 18 120/70 99 09/01/17 08:00 09/01/17 09:00 09/01/17 09:00 09/01/17 09:00 09/01/17 09:00 - Medications Medications: Current Medications Albuterol/Ipratropium (Duoneb 3 Mg/0.5 Mg (3 Ml) Ud) 3 ml INH RQ4 PRN PRN Reason: Shortness of Breath Last Admin: 09/01/17 01:29 Dose: 3 ml Albuterol/Ipratropium (Duoneb 3 Mg/0.5 Mg (3 Ml) Ud) 3 ml INH RQID [facility] Last Admin: 09/01/17 08:13 Dose: 3 ml Clonidine HCl (Catapres) 0.2 mg PO DAILY [facility] Last Admin: 09/01/17 08:51 Dose: 0.2 mg Donepezil HCl (Aricept) 5 mg PO HS [facility] Last Admin: 08/31/17 22:38 Dose: 5 mg Fenofibrate (Tricor) 48 mg PO HS [facility] Last Admin: 08/31/17 22:38 Dose: 48 mg Ferrous Sulfate (Feosol) 325 mg PO DAILY [facility] Last Admin: 09/01/17 08:51 Dose: 325 mg Furosemide (Lasix) 20 mg PO BID [facility] Last Admin: 09/01/17 08:50 Dose: 20 mg Glipizide (Glucotrol Xl) 10 mg PO BID@0800,1700 [facility] Last Admin: 09/01/17 08:51 Dose: 10 mg Guanfacine HCl (Intuniv) 1 mg PO DAILY [facility] Last Admin: 09/01/17 08:50 Dose: 1 mg Heparin Sodium (Porcine) (Heparin) 5,000 units SC Q8 [facility] PRN Reason: Protocol Last Admin: 08/29/17 08:36 Dose: 5,000 units Home Med (Esomeprazole Magnesium [Nexium]) 40 mg PO DAILY [facility] Home Med (Glimepiride [Amaryl]) 4 mg PO BID [facility] Home Med ([place]-3s/Dha/Epa/Fish Oil [Fish Oil [place]-3 Softgel]) 2 cap PO DAILY [facility] Hydralazine HCl (Apresoline) 50 mg PO DAILY [facility] Last Admin: 09/01/17 08:56 Dose: 50 mg Ceftriaxone Sodium (Rocephin Iv 1 Gm Duplex) 50 mls @ 50 mls/hr IVPB DAILY [facility] PRN Reason: Protocol Last Admin: 08/31/17 12:00 Dose: 50 mls/hr Azithromycin 500 mg/ Sodium (Chloride) 250 mls @ 250 mls/hr IVPB DAILY [facility] PRN Reason: Protocol Last Admin: 09/01/17 08:49 Dose: 250 mls/hr Insulin Detemir (Levemir) 25 units SC HS [facility] Last Admin: 08/31/17 22:39 Dose: 25 u Insulin Detemir (Levemir) 25 units SC ACB [facility] Last Admin: 09/01/17 08:50 Dose: 25 units Insulin Human Lispro (Humalog) 0 units SC Q6 [facility] PRN Reason: Protocol Last Admin: 09/01/17 06:09 Dose: 6 units Losartan Potassium (Cozaar) 100 mg PO DAILY [facility] Last Admin: 09/01/17 08:51 Dose: 100 mg Methylprednisolone (Solu-Medrol) 20 mg IVP Q12 [facility] Last Admin: 09/01/17 08:52 Dose: 20 mg Metoprolol Succinate (Toprol Xl) 100 mg PO DAILY [facility] Last Admin: 09/01/17 08:49 Dose: 100 mg Montelukast Sodium (Singulair) 10 mg PO HS [facility] Last Admin: 08/31/17 22:38 Dose: 10 mg Nateglinide (Starlix) 120 mg PO TID [facility] Last Admin: 09/01/17 08:50 Dose: 120 mg [id number] Ethyl Esters (Lovaza) 1 gm PO BID [facility] Last Admin: 09/01/17 08:50 Dose: 1 gm Pantoprazole Sodium (Protonix Ec Tab) 40 mg PO DAILY [facility] Last Admin: 09/01/17 08:49 Dose: 40 mg Paroxetine HCl (Paxil) 20 mg PO DAILY [facility] Last Admin: 08/31/17 09:57 Dose: 20 mg Potassium Chloride (Klor-Con 10) 10 meq PO DAILY [facility] Last Admin: 09/01/17 08:51 Dose: 10 meq Pregabalin (Lyrica) 75 mg PO HS [facility] Last Admin: 08/31/17 22:40 Dose: 75 mg Repaglinide (Prandin) 2 mg PO TIDWM [facility] Last Admin: 09/01/17 08:49 Dose: 2 mg - Labs Labs: 08/30/17 04:30 08/30/17 04:30 PT 11.3 Seconds (9.8-13.1) 08/27/17 00:45 INR 1.0 (0.9-1.2) 08/27/17 00:45 APTT 32.5 Seconds (25.6-37.1) 08/27/17 00:45 Assessment and Plan - Assessment and Plan (Free Text) Assessment: Patient was personally seen and examined by me in rounds with residents. Available labs and diagnostic data reviewed. Case, Patient's condition and management plan discussed with residents in rounds. Agree with resident's progress note. Plan: As ordered.
--- NOTE | 2017-08-30 11:38 | RAD ---
PROCEDURE: CHEST RADIOGRAPH, 1 VIEW HISTORY: Pneumonia with pleural effusion COMPARISON: 08/28/2017 FINDINGS: There has been interval extubation LUNGS: There is moderate pulmonary venous congestion. There is left retrocardiac airspace disease. PLEURA: The left costophrenic angle is blunted. No pneumothorax or large right pleural fluid seen. CARDIOVASCULAR: The heart is enlarged. There is a left-sided dual lead transvenous permanent pacing device. OSSEOUS STRUCTURES: No significant abnormalities. VISUALIZED UPPER ABDOMEN: Normal. OTHER FINDINGS: None. IMPRESSION: Cardiomegaly, pulmonary venous congestion and left pleural effusion. Underlying left airspace disease cannot be excluded.
[2017-08-30] MEDS ORDERED: REPAGLINIDE 2 MG PO SCH (13:00)
--- NOTE | 2017-08-30 14:05 | CP.CCUPN ---
CCU Subjective - Physician Review Subjective (Free Text): 08/30/17 13:59 The patient was Seen/interviewed and examined by me at the bedside, Medical records reviewed and Management issues were discussed and formulated with the house staff. Pt's current status is discussed with pt / pt's family Patient successfully extubated and doing well on 3L nasal cannula Patient sitting comfortable in chair, NAD Clinically improving, hemodynamically improved No Vasopressors Awake, comfortable, NAD Pt AAO x3. Alert, follows some commands Denies any chest pain, SOB or Palpitations Intermittent Non-productive cough Afebrile, NSR on the monitor Last 24H I&O 800/1550 This morning labs revealed no Leucocytosis, Plat down to 74---->71, SQ Heparin on hold improved renal function BUN/Cr up to 42/1.4--->39/1.3 Less evidence of fluid overload on exam, will switch Lasix to 20 mg PO BID [facility] Objective - Vital Signs / Intake & Output Vital Signs (Last 4 hours): Vital Signs Temp Pulse Resp BP Pulse Ox 08/30/17 12:00 97.9 F 84 20 118/63 95 08/30/17 10:00 72 16 159/68 H 100 Intake and Output (Last 8hrs): Intake & Output 08/29/17 08/30/17 08/30/17 22:59 06:59 14:59 Intake Total 200 240 Output Total 300 450 400 Balance -100 -210 -400 Weight 206 lb Intake: Oral 200 240 Output: Urine 300 450 400 Urethral ([place]) 300 Urine, Voided 450 400 Other: # Voids Urine, Voided 3 1 # Bowel Movements 2 1 - Physical Exam Head: Positive for: Atraumatic, Normocephalic Pupils: Positive for: PERRL Extroacular Muscles: Positive for: EOMI Conjunctiva: Positive for: Normal. Negative for: Injected, Icteric Mouth: Positive for: Moist Mucous Membranes Neck: Positive for: Normal Range of Motion, Trachea Midline. Negative for: Meningeal Signs, MIDLINE TENDERNESS, Paraspinal Tenderness, JVD, Lymphadenopathy , Bruit, Other Respiratory/Chest: Positive for: Decreased Breath Sounds, Rhonchi. Negative for : Respiratory Distress, Accessory Muscle Use, Wheezes Cardiovascular: Positive for: Regular Rate and Rhythm, Normal S1, S2, Peripheal Pulses Present. Negative for: Murmurs, Irregular Rhythm Upper Extremity: Positive for: Normal Inspection, Norm 2-Pt Discrimination Lower Extremity: Positive for: Edema, NORMAL PULSES, Capillary Refill < 2 s. Negative for: CALF TENDERNESS, Cyanosis - Medications Active Medications: Active Medications Generic Name Dose Route Start Last Admin Trade Name Freq PRN Reason Stop Dose Admin Albuterol/Ipratropium 3 ml 08/27/17 02:20 08/29/17 06:36 Duoneb 3 Mg/0.5 Mg (3 Ml) Ud INH 3 ml RQ4 PRN Administration Shortness of Breath Albuterol/Ipratropium 3 ml 08/27/17 16:00 08/30/17 11:00 Duoneb 3 Mg/0.5 Mg (3 Ml) Ud INH 3 ml RQID [facility] Administration Clonidine HCl 0.2 mg 08/30/17 12:15 Catapres PO DAILY [facility] Donepezil HCl 5 mg 08/30/17 22:00 Aricept PO HS [facility] Fenofibrate 48 mg 08/30/17 22:00 Tricor PO HS [facility] Ferrous Sulfate 325 mg 08/31/17 09:00 Feosol PO DAILY [facility] [place] Furosemide 20 mg 08/28/17 17:00 08/30/17 09:15 Lasix IVP 20 mg BID [facility] Administration Heparin Sodium (Porcine) 5,000 units 08/27/17 09:00 08/29/17 08:36 Heparin SC 5,000 units Q8 [facility] [place] Administration Protocol Home Med 40 mg 08/31/17 09:00 Esomeprazole Magnesium [Nexium] PO DAILY [facility] Home Med 40 mg 08/31/17 09:00 Furosemide [Furosemide] PO DAILY [facility] Home Med 4 mg 08/30/17 17:00 Glimepiride [Amaryl] PO BID [facility] Home Med 36 units 08/30/17 22:00 Insulin Detemir [Levemir] SC HS [facility] Home Med 2 cap 08/31/17 09:00 [place]-3s/Dha/Epa/Fish Oil [Fish Oil [place]-3 Softgel] PO DAILY [facility] [place] Hydralazine HCl 50 mg 08/31/17 09:00 Apresoline PO DAILY [facility] [place] Ceftriaxone Sodium 50 mls @ 50 mls/hr 08/27/17 13:00 08/30/17 09:13 Rocephin Iv 1 Gm Duplex IVPB 50 mls/hr DAILY [facility] Administration Protocol Azithromycin 500 mg/ Sodium 250 mls @ 250 mls/hr 08/27/17 13:00 08/30/17 09: 21 Chloride IVPB 250 mls/hr DAILY [facility] [place] Administration Protocol Insulin Detemir 25 units 08/28/17 22:00 08/29/17 21:54 Levemir SC 25 u HS [facility] Administration Insulin Detemir 25 units 08/30/17 07:32 Levemir SC ACB [facility] Insulin Human Lispro 0 units 08/27/17 11:00 08/30/17 12:33 Humalog SC 3 units Q6 [facility] Administration Protocol Losartan Potassium 100 mg 08/30/17 12:07 Cozaar PO DAILY [facility] Methylprednisolone 20 mg 08/28/17 09:00 08/30/17 09:14 Solu-Medrol IVP 20 mg Q8 [facility] Administration Metoprolol Succinate 100 mg 08/31/17 09:00 Toprol Xl PO DAILY [facility] Montelukast Sodium 10 mg 08/30/17 22:00 Singulair PO HS [facility] Nateglinide 120 mg 08/30/17 13:00 Starlix PO TID [facility] Pantoprazole Sodium 40 mg 08/27/17 09:00 08/29/17 08:39 Protonix Inj IVP 40 mg DAILY [facility] Administration Paroxetine HCl 20 mg 08/30/17 12:07 Paxil PO DAILY [facility] Potassium Chloride 10 meq 08/30/17 09:00 Klor-Con 10 PO DAILY [facility] [place] Pregabalin 75 mg 08/30/17 22:00 Lyrica PO HS [facility] [place] Repaglinide 2 mg 08/30/17 17:00 Prandin PO TIDWM [facility] - Patient Studies Lab Studies: Microbiology Studies 08/27/17 08:00 Blood Culture - Preliminary Blood NO GROWTH AFTER 3 DAYS 08/27/17 08:00 Blood Culture - Preliminary Blood NO GROWTH AFTER 3 DAYS Lab Studies 08/30/17 08/30/17 08/30/17 Range/Units 11:25 04:50 04:30 WBC (4.8-10.8) K/uL RBC (3.80-5.20) Mil/uL Hgb (12.0-16.0) g/dL Hct (34.0-47.0) % MCV (81.0-99.0) fl MCH (27.0-31.0) pg MCHC (33.0-37.0) g/dL RDW (11.5-14.5) % Plt Count (130-400) K/uL Sodium 143 (132-148) mmol/l Potassium 4.2 (3.6-5.0) MMOL/L Chloride 100 (98-107) mmol/L Carbon Dioxide 33 H (22-30) mmol/L Anion Gap 14 (10-20) BUN 39 H (7-17) mg/dl Creatinine 1.3 H (0.7-1.2) mg/dL Est GFR ( Amer) 47 Est GFR (Non-Af Amer) 39 POC Glucose (mg/dL) 207 H 183 H (65-110) mg/dL Random Glucose 161 H (65-105) mg/dL Calcium 9.4 (8.4-10.2) mg/dL Total Bilirubin 0.4 (0.2-1.3) mg/dl AST 54 H D (14-36) U/L ALT 46 (9-52) U/L Alkaline Phosphatase 64 (38-126) U/L Total Protein 7.7 (6.3-8.2) G/DL Albumin 3.9 (3.5-5.0) g/dL Globulin 3.8 (2.2-3.9) gm/dL Albumin/Globulin Ratio 1.0 (1.0-2.1) 08/30/17 08/29/17 08/29/17 Range/Units 04:30 21:51 16:54 WBC 7.0 (4.8-10.8) K/uL RBC 3.20 L (3.80-5.20) Mil/uL Hgb 10.6 L (12.0-16.0) g/dL Hct 31.5 L (34.0-47.0) % MCV 98.6 (81.0-99.0) fl MCH 33.2 H (27.0-31.0) pg MCHC 33.6 (33.0-37.0) g/dL RDW 13.3 (11.5-14.5) % Plt Count 71 L (130-400) K/uL Sodium (132-148) mmol/l Potassium (3.6-5.0) MMOL/L Chloride (98-107) mmol/L Carbon Dioxide (22-30) mmol/L Anion Gap (10-20) BUN (7-17) mg/dl Creatinine (0.7-1.2) mg/dL Est GFR ( Amer) Est GFR (Non-Af Amer) POC Glucose (mg/dL) 197 H 303 H (65-110) mg/dL Random Glucose (65-105) mg/dL Calcium (8.4-10.2) mg/dL Total Bilirubin (0.2-1.3) mg/dl AST (14-36) U/L ALT (9-52) U/L Alkaline Phosphatase (38-126) U/L Total Protein (6.3-8.2) G/DL Albumin (3.5-5.0) g/dL Globulin (2.2-3.9) gm/dL Albumin/Globulin Ratio (1.0-2.1) Laboratory Results - last 24 hr 08/29/17 08/29/17 08/30/17 16:54 21:51 04:30 WBC 7.0 RBC 3.20 L Hgb 10.6 L Hct 31.5 L MCV 98.6 MCH 33.2 H MCHC 33.6 RDW 13.3 Plt Count 71 L Sodium Potassium Chloride Carbon Dioxide Anion Gap BUN Creatinine Est GFR ( Amer) Est GFR (Non-Af Amer) POC Glucose (mg/dL) 303 H 197 H Random Glucose Calcium Total Bilirubin AST ALT Alkaline Phosphatase Total Protein Albumin Globulin Albumin/Globulin Ratio 08/30/17 08/30/17 08/30/17 04:30 04:50 11:25 WBC RBC Hgb Hct MCV MCH MCHC RDW Plt Count Sodium 143 Potassium 4.2 Chloride 100 Carbon Dioxide 33 H Anion Gap 14 BUN 39 H Creatinine 1.3 H Est GFR ( Amer) 47 Est GFR (Non-Af Amer) 39 POC Glucose (mg/dL) 183 H 207 H Random Glucose 161 H Calcium 9.4 Total Bilirubin 0.4 AST 54 H D ALT 46 Alkaline Phosphatase 64 Total Protein 7.7 Albumin 3.9 Globulin 3.8 Albumin/Globulin Ratio 1.0 Fingerstick Blood Sugar Results: 207 Critical Care Progress Note - Nutrition Nutrition: Nutrition Category Date Time Status Heart Healthy Diet [DIET] Diets 08/30/17 Breakfast Active Assessment/Plan (1) Respiratory failure Current Visit: Yes Status: Acute Comment: Successfully extubated Continue Solu-Medrol 20 mg IVP Q8 [facility] Continue Diuresis with Lasix change to 20 mg PO BID Continue IV Antibiotics (2) Systolic CHF, acute on chronic Current Visit: Yes Status: Acute Comment: Optimize fluid status, Less evidence of fluid overload on exam, will switch Lasix to 20 mg PO BID Strict I&O, daily Wt Negative fluid balance (3) Asthma attack Current Visit: Yes Status: Acute Comment: IV Solumedrol Albuterol/Ipratropium INH RQ4 (4) Moderate COPD (chronic obstructive pulmonary disease) Current Visit: Yes Status: Acute (5) Thrombocytopenia Current Visit: Yes Status: Acute Comment: Multifactorial mostly for sepsis and malignancy No signs of bleeding Hod SQ Heparin for now (6) Prophylactic measure Current Visit: Yes Status: Acute Comment: DVT PPX: SCDs, SQH (on hold due to low platelets) GI PPX: Protonix
[2017-08-30] MEDS: guanFACINE 1 MG TER PO SCH (15:03)
[2017-08-30] MEDS: Potassium Chloride 10 mEq ER Tab PO SCH (15:03)
--- NOTE | 2017-08-30 15:13 | PQF GENQUE ---
Dr. Penn, (1) Etiology of Sepsis? if known SEPSIS LIKELY DUE TO PNEUMONIA, BILATERAL INFILTERATE ON CXR (2) POA: Present on Admission? NOT PRESENT ON ADMISSION OR: Unable to determine OR: Other explanation of clinical finding Dr. Penn: Critical Care note: 08/29 and 08/30/17: diagnoses include: Thrombocytopenia ; Current Visit: Yes Status: Acute Comment: Multifactorial mostly for sepsis and malignancy No signs of bleeding Hod SQ Heparin for now This form is a permanent part of the medical record Clarification of your documentation is requested to better reflect the severity of illness and intensity of treatment of your patient. Indicators present [] Specify: [] [] Specify: [] [] Specify: [] [] Specify: [] Location in the medical record that reflects the above clinical findings: [] Treatment Provided: [] PHYSICIAN'S RESPONSE Based on your medical judgment of the clinical indicators outlined above please clarify the following: [] Practitioner response [] If unable to determine, please check the box, sign and date. Present On Admission (POA) Indicator: [] Present at the time of admission [] Not present at the time of admission [] Clinically Undetermined In responding to this query, please exercise your independent professional judgment. The fact that a question is asked does not imply that any particular answer is desired or expected. Thank you for your clarification on this documentation. If you have any questions please call. * Thank you, Ute Marsh RN ext. #[phone] MTDD
[2017-08-30] MEDS: GlipiZIDE 10 mg SR Tab PO SCH (17:01)
[2017-08-30] MEDS: Omega-3-Acid Ethyl Esters 1 GM Cap PO SCH (17:02)
[2017-08-30] MEDS ORDERED: INSULIN DETEMIR 36 UNIT SC SCH (22:00)
[2017-08-30] MEDS: Insulin Detemir 100 Units/ml Inj SC SCH (22:27)
--- NOTE | 2017-08-31 01:32 | CP.PCM.PN ---
Subjective - Date & Time of Evaluation Date of Evaluation: 08/30/17 Time of Evaluation: 22:00 - Subjective Subjective: sitting in bed extubated yesterday feeling fine awaiting telemetry bed Objective - Vital Signs/Intake and Output Vital Signs (last 24 hours): Temp Pulse Resp BP Pulse Ox 97.4 F L 75 20 155/73 H 97 08/30/17 16:00 08/30/17 18:00 08/30/17 18:00 08/30/17 17:01 08/30/17 18:00 Intake and Output: 08/30/17 08/31/17 18:59 06:59 Output Total 400 Balance -400 - Medications Medications: Current Medications Albuterol/Ipratropium (Duoneb 3 Mg/0.5 Mg (3 Ml) Ud) 3 ml INH RQ4 PRN PRN Reason: Shortness of Breath Last Admin: 08/29/17 06:36 Dose: 3 ml Albuterol/Ipratropium (Duoneb 3 Mg/0.5 Mg (3 Ml) Ud) 3 ml INH RQID [facility] Last Admin: 08/30/17 19:11 Dose: 3 ml Clonidine HCl (Catapres) 0.2 mg PO DAILY [facility] Last Admin: 08/30/17 15:04 Dose: 0.2 mg Donepezil HCl (Aricept) 5 mg PO HS [facility] Last Admin: 08/30/17 21:56 Dose: 5 mg Fenofibrate (Tricor) 48 mg PO HS [facility] Last Admin: 08/30/17 21:55 Dose: 48 mg Ferrous Sulfate (Feosol) 325 mg PO DAILY [facility] Furosemide (Lasix) 20 mg PO BID [facility] Last Admin: 08/30/17 17:01 Dose: 20 mg Glipizide (Glucotrol Xl) 10 mg PO BID@0800,1700 [facility] Last Admin: 08/30/17 17:01 Dose: 10 mg Guanfacine HCl (Intuniv) 1 mg PO DAILY [facility] Last Admin: 08/30/17 15:03 Dose: 1 mg Heparin Sodium (Porcine) (Heparin) 5,000 units SC Q8 [facility] PRN Reason: Protocol Last Admin: 08/29/17 08:36 Dose: 5,000 units Home Med (Esomeprazole Magnesium [Nexium]) 40 mg PO DAILY [facility] Home Med (Glimepiride [Amaryl]) 4 mg PO BID [facility] Home Med ([place]-3s/Dha/Epa/Fish Oil [Fish Oil [place]-3 Softgel]) 2 cap PO DAILY [facility] Hydralazine HCl (Apresoline) 50 mg PO DAILY [facility] Ceftriaxone Sodium (Rocephin Iv 1 Gm Duplex) 50 mls @ 50 mls/hr IVPB DAILY [facility] PRN Reason: Protocol Last Admin: 08/30/17 09:13 Dose: 50 mls/hr Azithromycin 500 mg/ Sodium (Chloride) 250 mls @ 250 mls/hr IVPB DAILY [facility] PRN Reason: Protocol Last Admin: 08/30/17 09:21 Dose: 250 mls/hr Insulin Detemir (Levemir) 25 units SC HS [facility] Last Admin: 08/30/17 22:27 Dose: 25 u Insulin Detemir (Levemir) 25 units SC ACB [facility] Insulin Human Lispro (Humalog) 0 units SC Q6 [facility] PRN Reason: Protocol Last Admin: 08/30/17 22:28 Dose: Not Given Losartan Potassium (Cozaar) 100 mg PO DAILY [facility] Last Admin: 08/30/17 17:00 Dose: 100 mg Methylprednisolone (Solu-Medrol) 20 mg IVP Q8 [facility] Last Admin: 08/30/17 17:04 Dose: 20 mg Metoprolol Succinate (Toprol Xl) 100 mg PO DAILY [facility] Montelukast Sodium (Singulair) 10 mg PO HS [facility] Last Admin: 08/30/17 21:55 Dose: 10 mg Nateglinide (Starlix) 120 mg PO TID [facility] Last Admin: 08/30/17 17:06 Dose: Not Given [id number]-[id number] Ethyl Esters (Lovaza) 1 gm PO BID [facility] Last Admin: 08/30/17 17:02 Dose: 1 gm Pantoprazole Sodium (Protonix Ec Tab) 40 mg PO DAILY [facility] Paroxetine HCl (Paxil) 20 mg PO DAILY [facility] Last Admin: 08/30/17 15:09 Dose: 20 mg Potassium Chloride (Klor-Con 10) 10 meq PO DAILY [facility] Last Admin: 08/30/17 15:03 Dose: 10 meq Pregabalin (Lyrica) 75 mg PO HS [facility] Last Admin: 08/30/17 22:27 Dose: 75 mg Repaglinide (Prandin) 2 mg PO TIDWM [facility] Last Admin: 08/30/17 17:06 Dose: 2 mg - Labs Labs: 08/30/17 04:30 08/30/17 04:30 PT 11.3 Seconds (9.8-13.1) 08/27/17 00:45 INR 1.0 (0.9-1.2) 08/27/17 00:45 APTT 32.5 Seconds (25.6-37.1) 08/27/17 00:45 - Constitutional Appears: Well - Head Exam Head Exam: ATRAUMATIC, NORMAL INSPECTION, NORMOCEPHALIC - Eye Exam Eye Exam: EOMI, Normal appearance, PERRL Pupil Exam: NORMAL ACCOMODATION, PERRL - ENT Exam ENT Exam: Mucous Membranes Moist, Normal Exam - Neck Exam Neck Exam: Full ROM, Normal Inspection. absent: Lymphadenopathy - Respiratory Exam Respiratory Exam: Clear to Ausculation Bilateral, NORMAL BREATHING PATTERN - Cardiovascular Exam Cardiovascular Exam: REGULAR RHYTHM, +S1, +S2. absent: Murmur - GI/Abdominal Exam GI & Abdominal Exam: Soft, Normal Bowel Sounds. absent: Tenderness - Rectal Exam Rectal Exam: NORMAL INSPECTION - Exam Exam: Circumcision, NORMAL INSPECTION External exam: NORMAL EXTERNAL EXAM Speculum exam: NORMAL SPECULUM EXAM Bimanual exam: NORMAL BIMANUAL EXAM - Extremities Exam Extremities Exam: Full ROM, Normal Capillary Refill, Normal Inspection. absent : Joint Swelling, Pedal Edema - Back Exam Back Exam: NORMAL INSPECTION - Neurological Exam Neurological Exam: Alert, Awake, CN II-XII Intact, Normal Gait, Oriented x3 - Psychiatric Exam Psychiatric exam: Normal Affect, Normal Mood - Skin Skin Exam: Dry, Intact, Normal Color, Warm Assessment and Plan (1) CHF (congestive heart failure) Status: Acute (2) Asthma attack Status: Acute (3) HTN (hypertension) Status: Acute (4) Moderate COPD (chronic obstructive pulmonary disease) Status: Acute (5) Respiratory failure Status: Acute (6) Systolic CHF, acute on chronic Status: Acute
[2017-08-31] MEDS: MethylPREDNISolone 40 mg Vial IVP SCH ×2 (02:17→22:41)
[2017-08-31] MEDS: Insulin Lispro (humaLOG) 100 Units/ml Inj SC SCH ×4 (06:53→22:39)
[2017-08-31] MEDS: Insulin Detemir 100 Units/ml Inj SC SCH ×2 (07:45→22:39)
[2017-08-31] MEDS: Albuterol-Ipratrop 3 mg / 0.5 (3 ml) UD INH SCH ×4 (08:00→19:02)
[2017-08-31] MEDS: GlipiZIDE 10 mg SR Tab PO SCH ×2 (08:15→16:09)
[2017-08-31] MEDS ORDERED: OMEGA PO SCH (09:00)
[2017-08-31] MEDS ORDERED: FUROSEMIDE 40 MG PO SCH (09:00)
[2017-08-31] MEDS ORDERED: DHA PO SCH (09:00)
[2017-08-31] MEDS ORDERED: POTASSIUM CHLORIDE 10 MEQ PO SCH (09:00)
[2017-08-31] MEDS ORDERED: EPA PO SCH (09:00)
[2017-08-31] MEDS ORDERED: FISH OIL PO SCH (09:00)
--- NOTE | 2017-08-31 09:39 | CP.PCM.PN ---
<Demarco Calzada - Last Filed: 08/31/17 14:06> Subjective - Date & Time of Evaluation Date of Evaluation: 08/31/17 Time of Evaluation: 09:37 - Subjective Subjective: No overnight events. Patient seen and examined with attending. Feeling much better. Breathing is easy, unlabored, with O2 via NC. She has been walking around her room. PT/OT eval today. Encouraged patient to ambulate, she has been sitting in chair next to bed. Eating well Home medications for BP and DM resumed. BP mostly controlled, DM has been uncontrolled. Patient is awaiting transfer to telemetry. Objective - Vital Signs/Intake and Output Vital Signs (last 24 hours): Temp Pulse Resp BP Pulse Ox 99.2 F 75 12 136/90 85 L 08/31/17 08:00 08/31/17 08:00 08/31/17 08:00 08/31/17 08:00 08/31/17 08:00 - Medications Medications: Current Medications Albuterol/Ipratropium (Duoneb 3 Mg/0.5 Mg (3 Ml) Ud) 3 ml INH RQ4 PRN PRN Reason: Shortness of Breath Last Admin: 08/29/17 06:36 Dose: 3 ml Albuterol/Ipratropium (Duoneb 3 Mg/0.5 Mg (3 Ml) Ud) 3 ml INH RQID [facility] Last Admin: 08/31/17 08:00 Dose: 3 ml Clonidine HCl (Catapres) 0.2 mg PO DAILY [facility] Last Admin: 08/30/17 15:04 Dose: 0.2 mg Donepezil HCl (Aricept) 5 mg PO HS [facility] Last Admin: 08/30/17 21:56 Dose: 5 mg Fenofibrate (Tricor) 48 mg PO HS [facility] Last Admin: 08/30/17 21:55 Dose: 48 mg Ferrous Sulfate (Feosol) 325 mg PO DAILY [facility] Furosemide (Lasix) 20 mg PO BID [facility] Last Admin: 08/30/17 17:01 Dose: 20 mg Glipizide (Glucotrol Xl) 10 mg PO BID@0800,1700 [facility] Last Admin: 08/30/17 17:01 Dose: 10 mg Guanfacine HCl (Intuniv) 1 mg PO DAILY [facility] Last Admin: 08/30/17 15:03 Dose: 1 mg Heparin Sodium (Porcine) (Heparin) 5,000 units SC Q8 [facility] PRN Reason: Protocol Last Admin: 08/29/17 08:36 Dose: 5,000 units Home Med (Esomeprazole Magnesium [Nexium]) 40 mg PO DAILY [facility] Home Med (Glimepiride [Amaryl]) 4 mg PO BID [facility] Home Med ([place]-3s/Dha/Epa/Fish Oil [Fish Oil [place]-3 Softgel]) 2 cap PO DAILY [facility] Hydralazine HCl (Apresoline) 50 mg PO DAILY [facility] Ceftriaxone Sodium (Rocephin Iv 1 Gm Duplex) 50 mls @ 50 mls/hr IVPB DAILY [facility] PRN Reason: Protocol Last Admin: 08/30/17 09:13 Dose: 50 mls/hr Azithromycin 500 mg/ Sodium (Chloride) 250 mls @ 250 mls/hr IVPB DAILY [facility] PRN Reason: Protocol Last Admin: 08/30/17 09:21 Dose: 250 mls/hr Insulin Detemir (Levemir) 25 units SC HS [facility] Last Admin: 08/30/17 22:27 Dose: 25 u Insulin Detemir (Levemir) 25 units SC ACB [facility] Insulin Human Lispro (Humalog) 0 units SC Q6 [facility] PRN Reason: Protocol Last Admin: 08/31/17 06:53 Dose: 6 units Losartan Potassium (Cozaar) 100 mg PO DAILY [facility] Last Admin: 08/30/17 17:00 Dose: 100 mg Methylprednisolone (Solu-Medrol) 20 mg IVP Q8 [facility] Last Admin: 08/31/17 02:17 Dose: 20 mg Metoprolol Succinate (Toprol Xl) 100 mg PO DAILY [facility] Montelukast Sodium (Singulair) 10 mg PO HS [facility] Last Admin: 08/30/17 21:55 Dose: 10 mg Nateglinide (Starlix) 120 mg PO TID [facility] Last Admin: 08/30/17 17:06 Dose: Not Given [id number] Ethyl Esters (Lovaza) 1 gm PO BID [facility] Last Admin: 08/30/17 17:02 Dose: 1 gm Pantoprazole Sodium (Protonix Ec Tab) 40 mg PO DAILY [facility] Paroxetine HCl (Paxil) 20 mg PO DAILY [facility] Last Admin: 08/30/17 15:09 Dose: 20 mg Potassium Chloride (Klor-Con 10) 10 meq PO DAILY [facility] Last Admin: 08/30/17 15:03 Dose: 10 meq Pregabalin (Lyrica) 75 mg PO HS [facility] Last Admin: 08/30/17 22:27 Dose: 75 mg Repaglinide (Prandin) 2 mg PO TIDWM [facility] Last Admin: 08/30/17 17:06 Dose: 2 mg - Labs Labs: 08/30/17 04:30 08/30/17 04:30 PT 11.3 Seconds (9.8-13.1) 08/27/17 00:45 INR 1.0 (0.9-1.2) 08/27/17 00:45 APTT 32.5 Seconds (25.6-37.1) 08/27/17 00:45 - Constitutional Appears: Non-toxic, No Acute Distress - Head Exam Head Exam: ATRAUMATIC, NORMAL INSPECTION, NORMOCEPHALIC - Respiratory Exam Respiratory Exam: Rales (bibasilar), Wheezes (mild diffuse). absent: Accessory Muscle Use, Chest Wall Tenderness, Respiratory Distress, Stridor - Cardiovascular Exam Cardiovascular Exam: +S1, +S2 - Extremities Exam Extremities Exam: Normal Inspection - Neurological Exam Neurological Exam: Alert, Awake, CN II-XII Intact - Psychiatric Exam Psychiatric exam: Normal Affect, Normal Mood - Skin Skin Exam: Dry, Intact, Normal Color, Warm Assessment and Plan - Assessment and Plan (Free Text) Assessment: 82 year old female admitted with asthma exacerbation with acute respiratory failure. Patient is doing much better today. PT/OT eval ordered. Consults: Cardiology, Nephrology Her renal function has been stable, improved. Echo Aug 2017: moderately impaired EF, mild TR, mild to mod pulm htn #Asthma exacerbation #CHF with reduced EF #Insulin dependent diabetes, type 2 #Thrombocytopenia #Anemia, chronic #HTN #DVT PPX -Continue with nebulizer treatments -d/c solumedrol 20mg q8, start solumedrol 20 mg q12 -patient takes iron for anemia, chronic can be managed as outpatient -pt is on home O2 -accuchecks, home medications for DM resumed -home meds reconciled, monitor BP now that home medications have been resumed. <Mario Jules - Last Filed: 09/01/17 10:38> Objective - Vital Signs/Intake and Output Vital Signs (last 24 hours): Temp Pulse Resp BP Pulse Ox 98.3 F 70 18 120/70 99 09/01/17 08:00 09/01/17 09:00 09/01/17 09:00 09/01/17 09:00 09/01/17 09:00 - Medications Medications: Current Medications Albuterol/Ipratropium (Duoneb 3 Mg/0.5 Mg (3 Ml) Ud) 3 ml INH RQ4 PRN PRN Reason: Shortness of Breath Last Admin: 09/01/17 01:29 Dose: 3 ml Albuterol/Ipratropium (Duoneb 3 Mg/0.5 Mg (3 Ml) Ud) 3 ml INH RQID [facility] Last Admin: 09/01/17 08:13 Dose: 3 ml Clonidine HCl (Catapres) 0.2 mg PO DAILY [facility] Last Admin: 09/01/17 08:51 Dose: 0.2 mg Donepezil HCl (Aricept) 5 mg PO HS [facility] Last Admin: 08/31/17 22:38 Dose: 5 mg Fenofibrate (Tricor) 48 mg PO HS [facility] Last Admin: 08/31/17 22:38 Dose: 48 mg Ferrous Sulfate (Feosol) 325 mg PO DAILY [facility] Last Admin: 09/01/17 08:51 Dose: 325 mg Furosemide (Lasix) 20 mg PO BID [facility] Last Admin: 09/01/17 08:50 Dose: 20 mg Glipizide (Glucotrol Xl) 10 mg PO BID@0800,1700 [facility] Last Admin: 09/01/17 08:51 Dose: 10 mg Guanfacine HCl (Intuniv) 1 mg PO DAILY [facility] Last Admin: 09/01/17 08:50 Dose: 1 mg Heparin Sodium (Porcine) (Heparin) 5,000 units SC Q8 [facility] PRN Reason: Protocol Last Admin: 08/29/17 08:36 Dose: 5,000 units Home Med (Esomeprazole Magnesium [Nexium]) 40 mg PO DAILY [facility] Home Med (Glimepiride [Amaryl]) 4 mg PO BID [facility] Home Med ([place]-3s/Dha/Epa/Fish Oil [Fish Oil [place]-3 Softgel]) 2 cap PO DAILY [facility] Hydralazine HCl (Apresoline) 50 mg PO DAILY [facility] Last Admin: 09/01/17 08:56 Dose: 50 mg Ceftriaxone Sodium (Rocephin Iv 1 Gm Duplex) 50 mls @ 50 mls/hr IVPB DAILY [facility] PRN Reason: Protocol Last Admin: 08/31/17 12:00 Dose: 50 mls/hr Azithromycin 500 mg/ Sodium (Chloride) 250 mls @ 250 mls/hr IVPB DAILY [facility] PRN Reason: Protocol Last Admin: 09/01/17 08:49 Dose: 250 mls/hr Insulin Detemir (Levemir) 25 units SC HS [facility] Last Admin: 08/31/17 22:39 Dose: 25 u Insulin Detemir (Levemir) 25 units SC ACB [facility] Last Admin: 09/01/17 08:50 Dose: 25 units Insulin Human Lispro (Humalog) 0 units SC Q6 [facility] PRN Reason: Protocol Last Admin: 09/01/17 06:09 Dose: 6 units Losartan Potassium (Cozaar) 100 mg PO DAILY [facility] Last Admin: 09/01/17 08:51 Dose: 100 mg Methylprednisolone (Solu-Medrol) 20 mg IVP Q12 [facility] Last Admin: 09/01/17 08:52 Dose: 20 mg Metoprolol Succinate (Toprol Xl) 100 mg PO DAILY [facility] Last Admin: 09/01/17 08:49 Dose: 100 mg Montelukast Sodium (Singulair) 10 mg PO HS [facility] Last Admin: 08/31/17 22:38 Dose: 10 mg Nateglinide (Starlix) 120 mg PO TID [facility] Last Admin: 09/01/17 08:50 Dose: 120 mg Qrull-2-Zdst Ethyl Esters (Lovaza) 1 gm PO BID [facility] Last Admin: 09/01/17 08:50 Dose: 1 gm Pantoprazole Sodium (Protonix Ec Tab) 40 mg PO DAILY [facility] Last Admin: 09/01/17 08:49 Dose: 40 mg Paroxetine HCl (Paxil) 20 mg PO DAILY [facility] Last Admin: 08/31/17 09:57 Dose: 20 mg Potassium Chloride (Klor-Con 10) 10 meq PO DAILY [facility] Last Admin: 09/01/17 08:51 Dose: 10 meq Pregabalin (Lyrica) 75 mg PO HS [facility] Last Admin: 08/31/17 22:40 Dose: 75 mg Repaglinide (Prandin) 2 mg PO TIDWM [facility] Last Admin: 09/01/17 08:49 Dose: 2 mg - Labs Labs: 08/30/17 04:30 08/30/17 04:30 PT 11.3 Seconds (9.8-13.1) 08/27/17 00:45 INR 1.0 (0.9-1.2) 08/27/17 00:45 APTT 32.5 Seconds (25.6-37.1) 08/27/17 00:45 Assessment and Plan - Assessment and Plan (Free Text) Assessment: Patient was personally seen and examined by me in rounds with residents. Available labs and diagnostic data reviewed. Case, Patient's condition and management plan discussed with residents in rounds. Agree with resident's progress note. Plan: As ordered.
[2017-08-31] MEDS: Metoprolol Succinate 100 mg XL Tab PO SCH (09:54)
[2017-08-31] MEDS: guanFACINE 1 MG TER PO SCH (09:55)
[2017-08-31] MEDS: Potassium Chloride 10 mEq ER Tab PO SCH (09:56)
[2017-08-31] MEDS: Omega-3-Acid Ethyl Esters 1 GM Cap PO SCH ×2 (09:56→16:10)
[2017-08-31] MEDS: Pantoprazole 40 mg EC Tab PO SCH (10:00)
[2017-08-31] MEDS: Azithromycin 500 MG in Sodium Chloride 0.9% 250 ML IVPB SCH (11:00)
[2017-08-31] MEDS: cefTRIAXone IV 1 gm in Dextros 50 ML IVPB SCH (12:00)
--- NOTE | 2017-08-31 15:58 | CP.PCM.PN ---
Subjective - Date & Time of Evaluation Date of Evaluation: 08/31/17 Time of Evaluation: 15:58 Objective - Vital Signs/Intake and Output Vital Signs (last 24 hours): Temp Pulse Resp BP Pulse Ox 97.9 F 80 15 139/76 100 08/31/17 12:00 08/31/17 13:00 08/31/17 13:00 08/31/17 13:00 08/31/17 13:00 - Medications Medications: Current Medications Albuterol/Ipratropium (Duoneb 3 Mg/0.5 Mg (3 Ml) Ud) 3 ml INH RQ4 PRN PRN Reason: Shortness of Breath Last Admin: 08/29/17 06:36 Dose: 3 ml Albuterol/Ipratropium (Duoneb 3 Mg/0.5 Mg (3 Ml) Ud) 3 ml INH RQID [facility] Last Admin: 08/31/17 15:07 Dose: 3 ml Clonidine HCl (Catapres) 0.2 mg PO DAILY [facility] Last Admin: 08/30/17 15:04 Dose: 0.2 mg Donepezil HCl (Aricept) 5 mg PO HS [facility] Last Admin: 08/30/17 21:56 Dose: 5 mg Fenofibrate (Tricor) 48 mg PO HS [facility] Last Admin: 08/30/17 21:55 Dose: 48 mg Ferrous Sulfate (Feosol) 325 mg PO DAILY [facility] Last Admin: 08/31/17 09:54 Dose: 325 mg Furosemide (Lasix) 20 mg PO BID [facility] Last Admin: 08/31/17 09:55 Dose: 20 mg Glipizide (Glucotrol Xl) 10 mg PO BID@0800,1700 [facility] Last Admin: 08/31/17 08:15 Dose: 10 mg Guanfacine HCl (Intuniv) 1 mg PO DAILY [facility] Last Admin: 08/31/17 09:55 Dose: 1 mg Heparin Sodium (Porcine) (Heparin) 5,000 units SC Q8 [facility] PRN Reason: Protocol Last Admin: 08/29/17 08:36 Dose: 5,000 units Home Med (Esomeprazole Magnesium [Nexium]) 40 mg PO DAILY [facility] Home Med (Glimepiride [Amaryl]) 4 mg PO BID [facility] Home Med ([place]-3s/Dha/Epa/Fish Oil [Fish Oil [place]-3 Softgel]) 2 cap PO DAILY [facility] Hydralazine HCl (Apresoline) 50 mg PO DAILY [facility] Last Admin: 08/31/17 09:56 Dose: 50 mg Ceftriaxone Sodium (Rocephin Iv 1 Gm Duplex) 50 mls @ 50 mls/hr IVPB DAILY [facility] PRN Reason: Protocol Last Admin: 08/30/17 09:13 Dose: 50 mls/hr Azithromycin 500 mg/ Sodium (Chloride) 250 mls @ 250 mls/hr IVPB DAILY [facility] PRN Reason: Protocol Last Admin: 08/30/17 09:21 Dose: 250 mls/hr Insulin Detemir (Levemir) 25 units SC HS [facility] Last Admin: 08/30/17 22:27 Dose: 25 u Insulin Detemir (Levemir) 25 units SC ACB [facility] Last Admin: 08/31/17 07:45 Dose: 25 units Insulin Human Lispro (Humalog) 0 units SC Q6 [facility] PRN Reason: Protocol Last Admin: 08/31/17 10:00 Dose: 8 units Losartan Potassium (Cozaar) 100 mg PO DAILY [facility] Last Admin: 08/31/17 09:57 Dose: 100 mg Methylprednisolone (Solu-Medrol) 20 mg IVP Q12 [facility] Metoprolol Succinate (Toprol Xl) 100 mg PO DAILY [facility] Last Admin: 08/31/17 09:54 Dose: 100 mg Montelukast Sodium (Singulair) 10 mg PO HS [facility] Last Admin: 08/30/17 21:55 Dose: 10 mg Nateglinide (Starlix) 120 mg PO TID [facility] Last Admin: 08/31/17 09:56 Dose: 120 mg Djllw-3-Gzmb Ethyl Esters (Lovaza) 1 gm PO BID [facility] Last Admin: 08/31/17 09:56 Dose: 1 gm Pantoprazole Sodium (Protonix Ec Tab) 40 mg PO DAILY [facility] Last Admin: 08/31/17 10:00 Dose: 40 mg Paroxetine HCl (Paxil) 20 mg PO DAILY [facility] Last Admin: 08/31/17 09:57 Dose: 20 mg Potassium Chloride (Klor-Con 10) 10 meq PO DAILY [facility] Last Admin: 08/31/17 09:56 Dose: 10 meq Pregabalin (Lyrica) 75 mg PO HS [facility] Last Admin: 08/30/17 22:27 Dose: 75 mg Repaglinide (Prandin) 2 mg PO TIDWM [facility] Last Admin: 08/31/17 09:54 Dose: 2 mg - Labs Labs: 08/30/17 04:30 08/30/17 04:30 PT 11.3 Seconds (9.8-13.1) 08/27/17 00:45 INR 1.0 (0.9-1.2) 08/27/17 00:45 APTT 32.5 Seconds (25.6-37.1) 08/27/17 00:45 Assessment and Plan (1) CHF (congestive heart failure) Status: Acute (2) Asthma attack Status: Acute (3) HTN (hypertension) Status: Acute (4) Moderate COPD (chronic obstructive pulmonary disease) Status: Acute (5) Respiratory failure Status: Acute (6) Systolic CHF, acute on chronic Status: Acute
[2017-09-01] MEDS: Albuterol-Ipratrop 3 mg / 0.5 (3 ml) UD INH PRN (01:29)
[2017-09-01] MEDS: Insulin Lispro (humaLOG) 100 Units/ml Inj SC SCH ×3 (06:09→22:00)
[2017-09-01] MEDS: Albuterol-Ipratrop 3 mg / 0.5 (3 ml) UD INH SCH ×3 (08:13→19:11)
--- NOTE | 2017-09-01 08:34 | PN ---
DATE: SUBJECTIVE: The patient is doing better, no specific complaint, no shortness of breath. OBJECTIVE: VITALS SIGNS: Showed blood pressure 134/105, pulse 88, temperature 98.1. CHEST: Clear. HEART: No rubs. ABDOMEN: Soft. EXTREMITIES: No edema. LABORATORY DATA: Hemoglobin 13.0, WBC okay. Sodium continued to come down 131, chloride 91, serum creatinine 0.4. IMPRESSION: Hyponatremia. Discussed with the primary physician and noted that the patient received IV mixed with D5W to be switched with normal saline and that will improve the hyponatremia. The patient, I believe, may be leaving today. Odin Rivera MD
--- NOTE | 2017-09-01 08:37 | PN ---
DATE: SUBJECTIVE: The patient sitting up, not in any acute distress, feeling okay. PHYSICAL EXAMINATION: VITAL SIGNS: Stable. Normal blood pressure, 139/76; pulse 80. CHEST: Clear. HEART: No rubs. ABDOMEN: Soft. EXTREMITIES: No edema. LABORATORY DATA: Shows serum creatinines continue to improve, 1.3; BUN 39; potassium 4.2; CO2 gone up, 33. CBC: Hemoglobin 10.6, WBC 7. IMPRESSION: Continue to improve and recover from acute kidney injury. The patient is doing much better as far as acute kidney injury. Follow up as per primary team. Odin Rivera MD
--- NOTE | 2017-09-01 08:40 | CP.PCM.PN ---
Subjective - Date & Time of Evaluation Date of Evaluation: 09/01/17 Time of Evaluation: 08:40 - Subjective Subjective: dictated Objective - Vital Signs/Intake and Output Vital Signs (last 24 hours): Temp Pulse Resp BP Pulse Ox 98.3 F 72 16 96/33 L 98 09/01/17 08:00 09/01/17 08:00 09/01/17 08:00 09/01/17 08:00 09/01/17 08:00 - Medications Medications: Current Medications Albuterol/Ipratropium (Duoneb 3 Mg/0.5 Mg (3 Ml) Ud) 3 ml INH RQ4 PRN PRN Reason: Shortness of Breath Last Admin: 09/01/17 01:29 Dose: 3 ml Albuterol/Ipratropium (Duoneb 3 Mg/0.5 Mg (3 Ml) Ud) 3 ml INH RQID [facility] Last Admin: 09/01/17 08:13 Dose: 3 ml Clonidine HCl (Catapres) 0.2 mg PO DAILY [facility] Last Admin: 08/31/17 11:08 Dose: 0.2 mg Donepezil HCl (Aricept) 5 mg PO HS [facility] Last Admin: 08/31/17 22:38 Dose: 5 mg Fenofibrate (Tricor) 48 mg PO HS [facility] Last Admin: 08/31/17 22:38 Dose: 48 mg Ferrous Sulfate (Feosol) 325 mg PO DAILY [facility] Last Admin: 08/31/17 09:54 Dose: 325 mg Furosemide (Lasix) 20 mg PO BID [facility] Last Admin: 08/31/17 16:09 Dose: 20 mg Glipizide (Glucotrol Xl) 10 mg PO BID@0800,1700 [facility] Last Admin: 08/31/17 16:09 Dose: 10 mg Guanfacine HCl (Intuniv) 1 mg PO DAILY [facility] Last Admin: 08/31/17 09:55 Dose: 1 mg Heparin Sodium (Porcine) (Heparin) 5,000 units SC Q8 [facility] PRN Reason: Protocol Last Admin: 08/29/17 08:36 Dose: 5,000 units Home Med (Esomeprazole Magnesium [Nexium]) 40 mg PO DAILY [facility] Home Med (Glimepiride [Amaryl]) 4 mg PO BID [facility] Home Med ([place]-3s/Dha/Epa/Fish Oil [Fish Oil [place]-3 Softgel]) 2 cap PO DAILY [facility] Hydralazine HCl (Apresoline) 50 mg PO DAILY [facility] Last Admin: 08/31/17 09:56 Dose: 50 mg Ceftriaxone Sodium (Rocephin Iv 1 Gm Duplex) 50 mls @ 50 mls/hr IVPB DAILY [facility] PRN Reason: Protocol Last Admin: 08/31/17 12:00 Dose: 50 mls/hr Azithromycin 500 mg/ Sodium (Chloride) 250 mls @ 250 mls/hr IVPB DAILY [facility] PRN Reason: Protocol Last Admin: 08/31/17 11:00 Dose: 250 mls/hr Insulin Detemir (Levemir) 25 units SC HS [facility] Last Admin: 08/31/17 22:39 Dose: 25 u Insulin Detemir (Levemir) 25 units SC ACB [facility] Last Admin: 08/31/17 07:45 Dose: 25 units Insulin Human Lispro (Humalog) 0 units SC Q6 [facility] PRN Reason: Protocol Last Admin: 09/01/17 06:09 Dose: 6 units Losartan Potassium (Cozaar) 100 mg PO DAILY [facility] Last Admin: 08/31/17 09:57 Dose: 100 mg Methylprednisolone (Solu-Medrol) 20 mg IVP Q12 [facility] Last Admin: 08/31/17 22:41 Dose: 20 mg Metoprolol Succinate (Toprol Xl) 100 mg PO DAILY [facility] Last Admin: 08/31/17 09:54 Dose: 100 mg Montelukast Sodium (Singulair) 10 mg PO HS [facility] Last Admin: 08/31/17 22:38 Dose: 10 mg Nateglinide (Starlix) 120 mg PO TID [facility] Last Admin: 08/31/17 16:11 Dose: 120 mg [id number] Ethyl Esters (Lovaza) 1 gm PO BID [facility] Last Admin: 08/31/17 16:10 Dose: 1 gm Pantoprazole Sodium (Protonix Ec Tab) 40 mg PO DAILY [facility] Last Admin: 08/31/17 10:00 Dose: 40 mg Paroxetine HCl (Paxil) 20 mg PO DAILY [facility] Last Admin: 08/31/17 09:57 Dose: 20 mg Potassium Chloride (Klor-Con 10) 10 meq PO DAILY [facility] Last Admin: 08/31/17 09:56 Dose: 10 meq Pregabalin (Lyrica) 75 mg PO HS [facility] Last Admin: 11/15/17 22:40 Dose: 75 mg Repaglinide (Prandin) 2 mg PO TIDWM [facility] Last Admin: 08/31/17 16:00 Dose: 2 mg - Labs Labs: 08/30/17 04:30 08/30/17 04:30 PT 11.3 Seconds (9.8-13.1) 08/27/17 00:45 INR 1.0 (0.9-1.2) 08/27/17 00:45 APTT 32.5 Seconds (25.6-37.1) 08/27/17 00:45 Assessment and Plan (1) DM2 (diabetes mellitus, type 2) Status: Acute (2) HTN (hypertension) Status: Acute
[2017-09-01] MEDS: Pantoprazole 40 mg EC Tab PO SCH (08:49)
[2017-09-01] MEDS: Metoprolol Succinate 100 mg XL Tab PO SCH (08:49)
[2017-09-01] MEDS: Azithromycin 500 MG in Sodium Chloride 0.9% 250 ML IVPB SCH (08:49)
[2017-09-01] MEDS: Omega-3-Acid Ethyl Esters 1 GM Cap PO SCH ×2 (08:50→19:07)
[2017-09-01] MEDS: Insulin Detemir 100 Units/ml Inj SC SCH ×2 (08:50→21:44)
[2017-09-01] MEDS: guanFACINE 1 MG TER PO SCH (08:50)
[2017-09-01] MEDS: Potassium Chloride 10 mEq ER Tab PO SCH (08:51)
[2017-09-01] MEDS: GlipiZIDE 10 mg SR Tab PO SCH ×2 (08:51→19:08)
[2017-09-01] MEDS: MethylPREDNISolone 40 mg Vial IVP SCH ×2 (08:52→21:40)
[2017-09-01] MEDS: cefTRIAXone IV 1 gm in Dextros 50 ML IVPB SCH (13:30)
[2017-09-01 14:26] LABS: MEAN CELL VOLUME 98.8 fl (81.0-99.0); MEAN CORPUSCULAR HEMOGLOBIN 33.2 pg (27.0-31.0); MEAN CORPUSCULAR HGB CONC 33.6 g/dL (33.0-37.0); RED CELL DISTRIBUTION WIDTH 13.6 % (11.5-14.5); WHITE BLOOD COUNT 6.8 K/uL (4.8-10.8)
[2017-09-01 14:49] LABS: CALCIUM 8.1 mg/dL (8.4-10.2); POTASSIUM 5.2 MMOL/L (3.6-5.0)
--- NOTE | 2017-09-01 15:20 | CP.PCM.PN ---
Subjective - Date & Time of Evaluation Date of Evaluation: 09/01/17 Time of Evaluation: 13:00 - Subjective Subjective: Patient seen and examined with attending. Patient is feeling much better. Her breathing is significantly improved. She does not have cough. No wheezing on todays exam. left lower lung, decreased breath sounds, minimal crackles. Patient had pleural effusion on previous imaging. will obtain repeat image to assess effusion Daughter stays with her 09/05. Would like to avoid sending patient to retirement. PT to evaluate patient. Repeat CBC to assess platelets, if improved can give heparin for dvt ppx Objective - Vital Signs/Intake and Output Vital Signs (last 24 hours): Temp Pulse Resp BP Pulse Ox 98.3 F 70 18 120/70 99 09/01/17 08:00 09/01/17 09:00 09/01/17 09:00 09/01/17 09:00 09/01/17 09:00 - Medications Medications: Current Medications Albuterol/Ipratropium (Duoneb 3 Mg/0.5 Mg (3 Ml) Ud) 3 ml INH RQ4 PRN PRN Reason: Shortness of Breath Last Admin: 09/01/17 01:29 Dose: 3 ml Albuterol/Ipratropium (Duoneb 3 Mg/0.5 Mg (3 Ml) Ud) 3 ml INH RQID [facility] Last Admin: 09/01/17 08:13 Dose: 3 ml Clonidine HCl (Catapres) 0.2 mg PO DAILY [facility] Last Admin: 09/01/17 08:51 Dose: 0.2 mg Donepezil HCl (Aricept) 5 mg PO HS [facility] Last Admin: 08/31/17 22:38 Dose: 5 mg Fenofibrate (Tricor) 48 mg PO HS [facility] Last Admin: 08/31/17 22:38 Dose: 48 mg Ferrous Sulfate (Feosol) 325 mg PO DAILY [facility] Last Admin: 09/01/17 08:51 Dose: 325 mg Furosemide (Lasix) 20 mg PO BID [facility] Last Admin: 09/01/17 08:50 Dose: 20 mg Glipizide (Glucotrol Xl) 10 mg PO BID@0800,1700 [facility] Last Admin: 09/01/17 08:51 Dose: 10 mg Guanfacine HCl (Intuniv) 1 mg PO DAILY [facility] Last Admin: 09/01/17 08:50 Dose: 1 mg Heparin Sodium (Porcine) (Heparin) 5,000 units SC Q8 [facility] PRN Reason: Protocol Last Admin: 08/29/17 08:36 Dose: 5,000 units Home Med (Esomeprazole Magnesium [Nexium]) 40 mg PO DAILY [facility] Home Med (Glimepiride [Amaryl]) 4 mg PO BID [facility] Home Med ([place]-3s/Dha/Epa/Fish Oil [Fish Oil [place]-3 Softgel]) 2 cap PO DAILY [facility] Hydralazine HCl (Apresoline) 50 mg PO DAILY [facility] Last Admin: 09/01/17 08:56 Dose: 50 mg Ceftriaxone Sodium (Rocephin Iv 1 Gm Duplex) 50 mls @ 50 mls/hr IVPB DAILY [facility] PRN Reason: Protocol Last Admin: 09/01/17 13:30 Dose: 50 mls/hr Azithromycin 500 mg/ Sodium (Chloride) 250 mls @ 250 mls/hr IVPB DAILY [facility] PRN Reason: Protocol Last Admin: 09/01/17 08:49 Dose: 250 mls/hr Insulin Detemir (Levemir) 25 units SC HS [facility] Last Admin: 08/31/17 22:39 Dose: 25 u Insulin Detemir (Levemir) 25 units SC ACB [facility] Last Admin: 09/01/17 08:50 Dose: 25 units Insulin Human Lispro (Humalog) 0 units SC Q6 [facility] PRN Reason: Protocol Last Admin: 09/01/17 06:09 Dose: 6 units Losartan Potassium (Cozaar) 100 mg PO DAILY [facility] Last Admin: 09/01/17 08:51 Dose: 100 mg Methylprednisolone (Solu-Medrol) 20 mg IVP Q12 [facility] Last Admin: 09/01/17 08:52 Dose: 20 mg Metoprolol Succinate (Toprol Xl) 100 mg PO DAILY [facility] Last Admin: 09/01/17 08:49 Dose: 100 mg Montelukast Sodium (Singulair) 10 mg PO HS [facility] Last Admin: 08/31/17 22:38 Dose: 10 mg Nateglinide (Starlix) 120 mg PO TID [facility] Last Admin: 09/01/17 14:09 Dose: 120 mg [id number] Ethyl Esters (Lovaza) 1 gm PO BID [facility] Last Admin: 09/01/17 08:50 Dose: 1 gm Pantoprazole Sodium (Protonix Ec Tab) 40 mg PO DAILY [facility] Last Admin: 09/01/17 08:49 Dose: 40 mg Paroxetine HCl (Paxil) 20 mg PO DAILY [facility] Last Admin: 09/01/17 14:07 Dose: 20 mg Potassium Chloride (Klor-Con 10) 10 meq PO DAILY [facility] Last Admin: 09/01/17 08:51 Dose: 10 meq Pregabalin (Lyrica) 75 mg PO HS [facility] Last Admin: 08/31/17 22:40 Dose: 75 mg Repaglinide (Prandin) 2 mg PO TIDWM [facility] 234 [facility]S [facility] Last Admin: 09/01/17 14:08 Dose: 2 mg - Labs Labs: 09/01/17 14:15 09/01/17 14:15 PT 11.3 Seconds (9.8-13.1) 08/27/17 00:45 INR 1.0 (0.9-1.2) 08/27/17 00:45 APTT 32.5 Seconds (25.6-37.1) 08/27/17 00:45 - Constitutional Appears: No Acute Distress - Head Exam Head Exam: NORMAL INSPECTION - ENT Exam ENT Exam: Mucous Membranes Moist Additional comments: poor dentition, missing teeth - Respiratory Exam Respiratory Exam: NORMAL BREATHING PATTERN. absent: Wheezes, Respiratory Distress Additional comments: anteriorly: clear to auscultation posteriorly: right lung clear to auscultation, left lower lung, minimal breath sounds, minimal crackles auscultated - Cardiovascular Exam Cardiovascular Exam: +S1, +S2 - GI/Abdominal Exam GI & Abdominal Exam: absent: Distended, Guarding, Tenderness - Extremities Exam Extremities Exam: Normal Inspection. absent: Pedal Edema - Neurological Exam Neurological Exam: Alert, Awake, CN II-XII Intact - Psychiatric Exam Psychiatric exam: Normal Affect, Normal Mood - Skin Skin Exam: Dry, Intact, Normal Color, Warm Assessment and Plan - Assessment and Plan (Free Text) Assessment: 82 year old female admitted with asthma exacerbation with acute respiratory failure. Patient clinically improving. Will space out nebulizer treatments. Consults: Cardiology, Nephrology Her renal function has been stable, today BUN/Cr elevated, possibly overdiuresis with IV lasix, obtain repeat CXR to assess pleural effusion. If effusion is improved can resume PO lasix, at home dose. Thrombocytopenia, stable, start heparin for dvt prophylaxis BP has been controlled. Echo Aug 2017: moderately impaired EF, mild TR, mild to mod pulm htn #Pleural effusion #Asthma exacerbation-resolved #CHF with reduced EF #Insulin dependent diabetes, type 2 #Thrombocytopenia #Anemia, chronic #HTN #DVT PPX -solumedrol 20 mg q12, start daily dosing tomorrow, PO -patient takes iron for anemia, chronic can be managed as outpatient -heparin q 8 ordered -insulin coverage for hyperglycemia 2' to steroid use -accuchecks, home medications for DM resumed case d/w Dr. Jules
--- NOTE | 2017-09-01 16:02 | PN ---
DATE: SUBJECTIVE: The patient who is 82 years of age. She is out of bed, sitting up, feeling good. Appetite is okay. No nausea. No vomiting. PHYSICAL EXAMINATION: VITAL SIGNS: Blood pressure 142/76, temperature 97.8. NECK: Supple. CHEST: Clear. HEART: No rubs. ABDOMEN: Soft. EXTREMITIES: No edema. LABORATORY DATA: The lab data showed hemoglobin 10.6; platelet trending down, 71,000 the latest. Creatinine trending down, the latest 1.3. IMPRESSION: The patient recovering from acute kidney injury and improving. Continue monitoring. The patient is diabetic as per primary team. Also, status post respiratory failure. Odin Rivera MD
--- NOTE | 2017-09-01 19:00 | RAD ---
HISTORY: reassess pleural effusion COMPARISON: 08/30/2017 TECHNIQUE: Chest PA and lateral FINDINGS: LUNGS: No active pulmonary disease. PLEURA: No significant pleural effusion identified. No pneumothorax apparent. CARDIOVASCULAR: No radiographic findings to suggest acute or significant cardiovascular disease. Position/ configuration of pacemaker device: Satisfactory. OSSEOUS STRUCTURES: No significant abnormalities. VISUALIZED UPPER ABDOMEN: Normal. OTHER FINDINGS: None. IMPRESSION: No active disease. No significant interval change compared to the prior examination(s).
--- NOTE | 2017-09-02 00:56 | CP.PCM.PN ---
Subjective - Date & Time of Evaluation Date of Evaluation: 09/01/17 Time of Evaluation: 17:00 Objective - Vital Signs/Intake and Output Vital Signs (last 24 hours): Temp Pulse Resp BP Pulse Ox 97.5 F L 77 18 124/79 98 09/01/17 15:54 09/01/17 15:54 09/01/17 15:54 09/01/17 19:10 09/01/17 15:54 - Medications Medications: Current Medications Albuterol/Ipratropium (Duoneb 3 Mg/0.5 Mg (3 Ml) Ud) 3 ml INH RQID [facility] Last Admin: 09/01/17 19:11 Dose: 3 ml Clonidine HCl (Catapres) 0.2 mg PO DAILY [facility] Last Admin: 09/01/17 08:51 Dose: 0.2 mg Donepezil HCl (Aricept) 5 mg PO HS [facility] Last Admin: 09/01/17 21:41 Dose: 5 mg Fenofibrate (Tricor) 48 mg PO HS [facility] Last Admin: 09/01/17 21:41 Dose: 48 mg Ferrous Sulfate (Feosol) 325 mg PO DAILY [facility] Last Admin: 09/01/17 08:51 Dose: 325 mg Furosemide (Lasix) 20 mg PO BID [facility] Last Admin: 09/01/17 19:10 Dose: 20 mg Glipizide (Glucotrol Xl) 10 mg PO BID@0800,1700 [facility] Last Admin: 09/01/17 19:08 Dose: 10 mg Guanfacine HCl (Intuniv) 1 mg PO DAILY [facility] Last Admin: 09/01/17 08:50 Dose: 1 mg Heparin Sodium (Porcine) (Heparin) 5,000 units SC Q8 [facility] PRN Reason: Protocol Last Admin: 08/29/17 08:36 Dose: 5,000 units Home Med (Esomeprazole Magnesium [Nexium]) 40 mg PO DAILY [facility] Home Med (Glimepiride [Amaryl]) 4 mg PO BID [facility] Home Med ([place]-3s/Dha/Epa/Fish Oil [Fish Oil [place]-3 Softgel]) 2 cap PO DAILY [facility] Hydralazine HCl (Apresoline) 50 mg PO DAILY [facility] Last Admin: 09/01/17 08:56 Dose: 50 mg Ceftriaxone Sodium (Rocephin Iv 1 Gm Duplex) 50 mls @ 50 mls/hr IVPB DAILY [facility] PRN Reason: Protocol Last Admin: 09/01/17 13:30 Dose: 50 mls/hr Azithromycin 500 mg/ Sodium (Chloride) 250 mls @ 250 mls/hr IVPB DAILY [facility] PRN Reason: Protocol Last Admin: 09/01/17 08:49 Dose: 250 mls/hr Insulin Detemir (Levemir) 25 units SC HS [facility] Last Admin: 09/01/17 21:44 Dose: 25 u Insulin Detemir (Levemir) 25 units SC ACB [facility] Last Admin: 09/01/17 08:50 Dose: 25 units Insulin Human Lispro (Humalog) 0 units SC Q6 [facility] PRN Reason: Protocol Last Admin: 09/01/17 19:06 Dose: 8 units Losartan Potassium (Cozaar) 100 mg PO DAILY [facility] Last Admin: 09/01/17 08:51 Dose: 100 mg Methylprednisolone (Solu-Medrol) 20 mg IVP Q12 [facility] Last Admin: 09/01/17 21:40 Dose: 20 mg Metoprolol Succinate (Toprol Xl) 100 mg PO DAILY [facility] Last Admin: 09/01/17 08:49 Dose: 100 mg Montelukast Sodium (Singulair) 10 mg PO HS [facility] Last Admin: 09/01/17 21:41 Dose: 10 mg Nateglinide (Starlix) 120 mg PO TID [facility] Last Admin: 09/01/17 19:09 Dose: 120 mg [id number] Ethyl Esters (Lovaza) 1 gm PO BID [facility] Last Admin: 09/01/17 19:07 Dose: 1 gm Pantoprazole Sodium (Protonix Ec Tab) 40 mg PO DAILY [facility] Last Admin: 09/01/17 08:49 Dose: 40 mg Paroxetine HCl (Paxil) 20 mg PO DAILY [facility] Last Admin: 09/01/17 14:07 Dose: 20 mg Potassium Chloride (Klor-Con 10) 10 meq PO DAILY [facility] Last Admin: 09/01/17 08:51 Dose: 10 meq Pregabalin (Lyrica) 75 mg PO HS [facility] Last Admin: 09/01/17 21:41 Dose: 75 mg Repaglinide (Prandin) 2 mg PO TIDWM [facility] Last Admin: 09/01/17 19:07 Dose: 2 mg - Labs Labs: 09/01/17 14:15 09/01/17 14:15 PT 11.3 Seconds (9.8-13.1) 08/27/17 00:45 INR 1.0 (0.9-1.2) 08/27/17 00:45 APTT 32.5 Seconds (25.6-37.1) 08/27/17 00:45 Assessment and Plan (1) CHF (congestive heart failure) Status: Acute (2) Asthma attack Status: Acute (3) HTN (hypertension) Status: Acute (4) Moderate COPD (chronic obstructive pulmonary disease) Status: Acute (5) Respiratory failure Status: Acute (6) Systolic CHF, acute on chronic Status: Acute
[2017-09-02 08:17] VITALS: RESP 18
[2017-09-02] MEDS: Albuterol-Ipratrop 3 mg / 0.5 (3 ml) UD INH SCH ×3 (08:44→16:51)
[2017-09-02] MEDS: Insulin Detemir 100 Units/ml Inj SC SCH (08:59)
[2017-09-02] MEDS: Omega-3-Acid Ethyl Esters 1 GM Cap PO SCH ×2 (09:50→16:18)
[2017-09-02] MEDS: guanFACINE 1 MG TER PO SCH (09:51)
[2017-09-02] MEDS: GlipiZIDE 10 mg SR Tab PO SCH ×2 (09:51→16:30)
[2017-09-02] MEDS: Pantoprazole 40 mg EC Tab PO SCH (09:52)
[2017-09-02] MEDS: Potassium Chloride 10 mEq ER Tab PO SCH (09:52)
[2017-09-02] MEDS: Metoprolol Succinate 100 mg XL Tab PO SCH (09:53)
[2017-09-02] MEDS: cefTRIAXone IV 1 gm in Dextros 50 ML IVPB SCH (09:56)
[2017-09-02] MEDS: Azithromycin 500 MG in Sodium Chloride 0.9% 250 ML IVPB SCH (10:03)
[2017-09-02] MEDS: MethylPREDNISolone 40 mg Vial IVP SCH (10:04)
[2017-09-02] MEDS: Insulin Lispro (humaLOG) 100 Units/ml Inj SC SCH ×2 (10:25→16:25)
--- NOTE | 2017-09-02 11:32 | CP.PCM.DIS ---
Provider - Provider Date of Admission: 08/27/17 02:17 Attending physician: Mario Jules MD Consults: Cardiology: Dr. Thacker Nephrology: Dr. Rivera Time Spent in preparation of Discharge (in minutes): 35 Diagnosis - Discharge Diagnosis (1) Asthma exacerbation Status: Resolved (2) Respiratory failure Status: Resolved Hospital Course - Lab Results Lab Results: Micro Results 08/27/17 08:00 Blood Blood Culture - Final NO GROWTH AFTER 5 DAYS 08/27/17 08:00 Blood Gram Stain - Final TEST NOT PERFORMED 08/27/17 08:00 Blood Blood Culture - Final NO GROWTH AFTER 5 DAYS 08/27/17 08:00 Blood Gram Stain - Final TEST NOT PERFORMED 08/27/17 08:00 Naris MRSA Culture (Admit) - Final MRSA NOT DETECTED Most Recent Lab Values WBC 6.8 K/uL (4.8-10.8) 09/01/17 14:15 RBC 3.03 Mil/uL (3.80-5.20) L 09/01/17 14:15 Hgb 10.1 g/dL (12.0-16.0) L 09/01/17 14:15 Hct 30.0 % (34.0-47.0) L 09/01/17 14:15 MCV 98.8 fl (81.0-99.0) 09/01/17 14:15 MCH 33.2 pg (27.0-31.0) H 09/01/17 14:15 MCHC 33.6 g/dL (33.0-37.0) 09/01/17 14:15 RDW 13.6 % (11.5-14.5) 09/01/17 14:15 Plt Count 95 K/uL (130-400) L D 09/01/17 14:15 MPV 8.9 fl (7.2-11.7) 08/27/17 05:30 Neut % (Auto) 87.8 % (50.0-75.0) H 08/27/17 00:45 Lymph % (Auto) 10.1 % (20.0-40.0) L 08/27/17 00:45 Sandoval % (Auto) 1.0 % (0.0-10.0) 08/27/17 00:45 Eos % (Auto) 1.0 % (0.0-4.0) 08/27/17 00:45 Baso % (Auto) 0.1 % (0.0-2.0) 08/27/17 00:45 Neut # 5.0 K/uL (1.8-7.0) 08/27/17 00:45 Lymph # 0.6 K/uL (1.0-4.3) L 08/27/17 00:45 Sandoval # 0.1 K/uL (0.0-0.8) 08/27/17 00:45 Eos # 0.1 K/uL (0.0-0.7) 08/27/17 00:45 Baso # 0.0 K/uL (0.0-0.2) 08/27/17 00:45 PT 11.3 Seconds (9.8-13.1) 08/27/17 00:45 INR 1.0 (0.9-1.2) 08/27/17 00:45 APTT 32.5 Seconds (25.6-37.1) 08/27/17 00:45 pCO2 36 mm/Hg (35-45) 08/28/17 05:30 pO2 167 mm/Hg (80-100) H 08/28/17 05:30 HCO3 29.2 mmol/L (21-28) H 08/28/17 05:30 ABG pH 7.51 (7.35-7.45) H 08/28/17 05:30 ABG Total CO2 29.8 mmol/L (22-28) H 08/28/17 05:30 ABG O2 Saturation 97.7 % (95-98) 08/28/17 05:30 ABG O2 Content 14.4 ML/dL (15-23) L 08/28/17 05:30 ABG Base Excess 5.4 mmol/L (-2.0-3.0) H 08/28/17 05:30 ABG Hemoglobin 10.3 g/dL (11.7-17.4) L 08/28/17 05:30 ABG Carboxyhemoglobin 0 % (0.5-1.5) L 08/28/17 05:30 POC ABG HHb (Measured) 2.3 % (0.0-5.0) 08/28/17 05:30 ABG Methemoglobin 0.7 % (0.0-3.0) 08/28/17 05:30 ABG O2 Capacity 14.7 mL/dL (16-24) L 08/28/17 05:30 Edilson Test Yes 08/28/17 05:30 ABG Potassium 5.7 mmol/L (3.6-5.2) H 08/27/17 01:03 A-a O2 Difference 216.0 mm/Hg 08/28/17 05:30 Hgb O2 Saturation 97.0 % (95.0-98.0) 08/28/17 05:30 Sodium 132.0 mmol/L (132-148) 08/27/17 01:03 Chloride 108.0 mmol/L (98-107) H 08/27/17 01:03 Glucose 350 mg/dL (65-105) H 08/27/17 01:03 Lactate 1.2 mmol/L (0.7-2.1) 08/27/17 01:03 Vent Mode A/c 08/28/17 05:30 Mechanical Rate 12 08/28/17 05:30 FiO2 60.0 % 08/28/17 05:30 Tidal Volume 500 08/28/17 05:30 PEEP 5 08/28/17 05:30 Sodium 129 mmol/l (132-148) L 09/01/17 14:15 Potassium 5.2 MMOL/L (3.6-5.0) H 09/01/17 14:15 Chloride 95 mmol/L (98-107) L 09/01/17 14:15 Carbon Dioxide 23 mmol/L (22-30) 09/01/17 14:15 Anion Gap 16 (10-20) 09/01/17 14:15 BUN 71 mg/dl (7-17) H 09/01/17 14:15 Creatinine 2.4 mg/dl (0.7-1.2) H 09/01/17 14:15 Est GFR ( Amer) 23 09/01/17 14:15 Est GFR (Non-Af Amer) 19 09/01/17 14:15 POC Glucose (mg/dL) 304 mg/dL (65-110) H 09/02/17 06:21 Random Glucose 331 mg/dL (65-105) H 09/01/17 14:15 Lactic Acid 1.4 MMOL/L (0.7-2.1) 08/27/17 00:45 Calcium 8.1 mg/dL (8.4-10.2) L 09/01/17 14:15 Total Bilirubin 0.4 mg/dl (0.2-1.3) 08/30/17 04:30 AST 54 U/L (14-36) H D 08/30/17 04:30 ALT 46 U/L (9-52) 08/30/17 04:30 Alkaline Phosphatase 64 U/L (38-126) 08/30/17 04:30 Troponin I 0.0330 ng/mL (0.00-0.120) 08/27/17 00:45 NT-Pro-B Natriuret Pep 6430 pg/ml (0-900) H 08/27/17 00:45 Total Protein 7.7 G/DL (6.3-8.2) 08/30/17 04:30 Albumin 3.9 g/dL (3.5-5.0) 08/30/17 04:30 Globulin 3.8 gm/dL (2.2-3.9) 08/30/17 04:30 Albumin/Globulin Ratio 1.0 (1.0-2.1) 08/30/17 04:30 Triglycerides 176 mg/DL (0-149) H 08/27/17 08:20 Cholesterol 137 mg/dL (0-199) 08/27/17 08:20 LDL Cholesterol Direct 47 mg/dL (0-129) 08/27/17 08:20 HDL Cholesterol 26 MG/DL (30-70) L 08/27/17 08:20 Vitamin B12 468 pg/mL (239-931) 08/27/17 08:20 TSH 3rd Generation 1.19 mIU/ML (0.46-4.68) 08/27/17 08:20 Arterial Blood Potassium 5.7 mmol/L (3.6-5.2) H 08/27/17 01:03 Urine Color Yellow (YELLOW) 08/27/17 04:10 Urine Clarity Slighty-cloudy (Clear) 08/27/17 04:10 Urine pH 5.0 (5.0-8.0) 08/27/17 04:10 Ur Specific Baker 1.017 (1.003-1.030) 08/27/17 04:10 Urine Protein 30 mg/dL (NEGATIVE) 08/27/17 04:10 Urine Glucose (UA) 50 mg/dL (Normal) 08/27/17 04:10 Urine Ketones Negative mg/dL (NEGATIVE) 08/27/17 04:10 Urine Blood Negative (NEGATIVE) 08/27/17 04:10 Urine Nitrate Negative (NEGATIVE) 08/27/17 04:10 Urine Bilirubin Negative (NEGATIVE) 08/27/17 04:10 Urine Urobilinogen 0.2-1.0 mg/dL (0.2-1.0) 08/27/17 04:10 Ur Leukocyte Esterase Neg Binta/uL (Negative) 08/27/17 04:10 Urine RBC (Auto) 1 /hpf (0-3) 08/27/17 04:10 Urine Microscopic WBC 2 /hpf (0-5) 08/27/17 04:10 Ur Squamous Epith Cells < 1 /hpf (0-5) 08/27/17 04:10 Urine Bacteria Rare (<OCC) 08/27/17 04:10 Hyaline Casts 0-2 /hpf (0-2) 08/27/17 04:10 Influenza Typ A,B (EIA) Negative for flu a/b (NEGATIVE) 08/27/17 00:45 - Hospital Course Hospital Course: 82 year old female admitted with asthma exacerbation with acute respiratory failure. She was intubated initally. She has been breathing well on room air, intermittently needs O2. Her renal function has been stable, today BUN/Cr elevated, possibly overdiuresis with IV lasix, repeat BMP today. Repeat CXR to assess pleural effusion revealed stable findings. She is able to walk around, PT has cleared the patient. She has anemia and thrombocytopenia, that are stable. Can be managed as outpatient. Her BP has been controlled. She has been on Solumedrol IV, swtich to PO upon discharge with taper. Echo Aug 2017: moderately impaired EF, mild TR, mild to mod pulm htn Discharge Exam - Head Exam Head Exam: NORMAL INSPECTION - Eye Exam Pupil Exam: NORMAL ACCOMODATION - Respiratory Exam Respiratory Exam: Decreased Breath Sounds (left lower lobe), NORMAL BREATHING PATTERN. absent: Rales, Rhonchi, Wheezes, Respiratory Distress - Cardiovascular Exam Cardiovascular Exam: +S1, +S2 - Extremities Exam Extremities exam: normal inspection - Neurological Exam Neurological exam: Alert, CN II-XII Intact - Psychiatric Exam Psychiatric exam: Normal Affect, Normal Mood - Skin Skin Exam: Dry, Intact, Normal Color, Warm Discharge Plan - Follow Up Plan Condition: CRITICAL Disposition: HOME/ ROUTINE
[2017-09-02 12:13] LABS: CALCIUM 8.2 mg/dL (8.4-10.2); POTASSIUM 4.4 MMOL/L (3.6-5.0)
[2017-09-02 15:42] VITALS: BP 121/68; PULSE 70; TEMP 97.3; O2SAT 100
== END 2017-09-02 18:16 | disposition home or self-care (01) | DRG 208 ==
LOC: H.ER 00:37 → H.ERHOLD 02:17 → H.ICU/CCU 03:37 → H.MEDSURG1 09-01 09:41
PROVIDERS: ADMIT Internal Medicine; ATTEND Internal Medicine
PROC: 5A1945Z Respiratory Ventilation, 24-96 Consecutive Hours (ICD-10-PCS; principal; 2017-08-27)
DX: J96.01 Acute respiratory failure with hypoxia (principal); I50.23 Acute on chronic systolic (congestive) heart failure; A41.9 Sepsis, unspecified organism; J18.9 Pneumonia, unspecified organism; C22.9 Malignant neoplasm of liver, not specified as primary or secondary; C79.81 Secondary malignant neoplasm of breast; N17.9 Acute kidney failure, unspecified; J45.901 Unspecified asthma with (acute) exacerbation; E87.1 Hypo-osmolality and hyponatremia; J44.9 Chronic obstructive pulmonary disease, unspecified; E11.65 Type 2 diabetes mellitus with hyperglycemia; I11.0 Hypertensive heart disease with heart failure; D69.59 Other secondary thrombocytopenia; E87.5 Hyperkalemia; J96.02 Acute respiratory failure with hypercapnia; I25.10 Atherosclerotic heart disease of native coronary artery without angina pectoris; Z95.0 Presence of cardiac pacemaker; D64.9 Anemia, unspecified; Z79.4 Long term (current) use of insulin